=== PATIENT | female | born 1960 | race Caucasian/White ===

== ENCOUNTER → 2017-02-15 | Outpatient (CLI) | payer MEDICARE, MEDICAID ==
--- NOTE | 2017-02-15 08:16 | Diagnostic Imaging Report ---
Left breast ultrasound. INDICATION: Lumps in the periareolar and lesser aspect of the left breast. CAD is utilized. The current study was also evaluated with a Computer Aided Detection (CAD) system. FINDINGS: There is a heterogeneously dense parenchyma which may decrease mammographic sensitivity. The areas of palpable lump demonstrates no definite abnormality. A mild asymmetry along the lateral aspect of the left breast near the palpable area appears to change in shape on the exaggerated lateral view from the cc projection and on the lateral view in favor of summation artifact of parenchyma. IMPRESSION: No suspicious underlying mass evident on mammography. Ultrasound evaluation is pending. BI-RADS 0. ACR BI-RADS Category 0: Incomplete. (Needs additional imaging evaluation). Result letter will be mailed to the patient. Note: At least 10% of breast cancer is not imaged by mammography. Dictated by: Dictated on workstation # [id number]
--- NOTE | 2017-02-15 18:24 | Diagnostic Imaging Report ---
Left breast ultrasound. INDICATION: Left breast lumps. FINDINGS: At the 1:30 o'clock position lump area and at the 7:30 zone in the left breast, areas of palpable lumps are evaluated with no underlying abnormality seen. IMPRESSION: Negative study. Clinical follow-up of the palpable area is recommended. ACR BI-RADS Category 1: Negative. Dictated by: Dictated on workstation # [id number]
== END ==
LOC: RAD 07:40
PROVIDERS: ATTEND Nurse Practitioner Family
DX: N63 Unspecified lump in breast (principal)
CPT/HCPCS: 76642

== ENCOUNTER → 2017-08-02 | Outpatient (CLI) | payer MEDICARE, MEDICAID ==
[~2017-08-02] MED LIST: REGADENOSON 0.4 MG/5 ML SYR (LEXISCAN) IV ONE
[2017-08-02] MEDS: CATHETER FLUSH 10 ML SYR IV PRN ×2 (11:36→13:11)
[2017-08-02 13:08] VITALS: BP 137/66
--- NOTE | 2017-08-03 09:24 | STRESS TEST ---
DATE OF SERVICE: 08/02/2017 LEXISCAN MYOVIEW STRESS TEST REPORT REFERRING PHYSICIAN: Dr. Daniel Valencia. Baseline heart rate is 75. Baseline blood pressure 143/69 baseline EKG is sinus rhythm with no ischemic changes. In summary, the patient was injected with 10.93 mCi of technetium-99 Myoview and the resting images were obtained. Then, the patient received 0.4 mg of Lexiscan followed by 31.1 mCi of technetium-99 Myoview. Throughout the test, there were no EKG changes. The resting and stress images were reviewed and compared in the short axis, horizontal long axis, and vertical long axis views. Review of the images showed breast attenuation with mild decreased uptake involving the whole anterior wall with reversibility. There is total infarction of the inferior wall and inferoapical segment, inferolateral wall. SSS is 21. SDS zero. TID value 1.01. On the gated images, the left ventricle appeared to be dilated with diffuse left ventricular hypokinesia, calculated ejection fraction 33%. CONCLUSION: 1. The patient tolerated Lexiscan well. 2. 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 3. Dilated left ventricle with diffuse left ventricular hypokinesia, calculated ejection fraction 33%. Job ID: [id number] DocumentID: [id number] Dictated Date: 08/02/2017 15:34:25 Reliner Date: 08/03/2017 08:01:47 Dictated By: ISAIAH MARK MD
== END ==
LOC: CARD 11:07
PROVIDERS: ATTEND Internal Medicine Cardiovascular Disease
DX: E78.5 Hyperlipidemia, unspecified; E07.9 Disorder of thyroid, unspecified; I25.10 Atherosclerotic heart disease of native coronary artery without angina pectoris; I10 Essential (primary) hypertension
CPT/HCPCS: 78452; 93017; 93306

== ENCOUNTER 2017-09-19 13:17 | Outpatient (CLI) | payer MEDICARE, MEDICAID ==
[~2017-09-19] VITALS: Ht 160 cm; Wt 52.2 kg
[~2017-09-19 13:17] MED LIST changes: +ALPR0.254 PO; +ASCO500T7 PO; +ASPI-808 PO; +ASPI-983 PO; +ATOR40TA70 PO; +BLAC80CA PO; +CARV6.252 PO; +CHOL400D8 PO; +CHRO1TAB8 PO; +CLOP75TA28 PO; +CYCL10TA9 PO; +ESCI10TA55 PO; +ESTR10TA9 VG; +GABA300S2 PO; +HYDR-3820 PO; +LANS30CA PO; +LISI10TA2 PO; +MAGN400T6 PO; +MULT-436 PO; +NAPR-1067 PO; +NITR0.4T SL; +OMEG1CAP58 PO; +OXYC20TA3 PO; -REGADENOSON 0.4 MG/5 ML SYR (LEXISCAN) IV ONE; +TRAM50TA2 PO; +TRAZ150T72 PO; +UBIQ100C3 PO; +VITA1CAP PO
[2017-09-19] MEDS ORDERED: CHOL200059 PO (13:32)
[2017-09-19] MEDS ORDERED: ESTR1TAB24 PO (13:32)
[2017-09-19] MEDS ORDERED: ASPI-586 PO (13:32)
[2017-09-19] MEDS ORDERED: GABA-488 PO (13:32)
[2017-09-19 13:39] VITALS: BP 123/71
== END 2017-09-19 13:40 | disposition home or self-care (01) ==
LOC: PREOP 13:17
PROVIDERS: ATTEND Orthopaedic Surgery
DX: Z01.818 Encounter for other preprocedural examination (principal); M75.101 Unspecified rotator cuff tear or rupture of right shoulder, not specified as traumatic
CPT/HCPCS: 87081

== ENCOUNTER 2017-09-27 08:20 | Day surgery (SDC) | payer MEDICARE, MEDICAID ==
--- NOTE | 2017-09-18 12:40 | HISTORY AND PHYSICAL ---
DATE OF SERVICE: DATE OF ADMISSION: 09/27/2017 ADMISSION HISTORY AND PHYSICAL SOCIAL SECURITY LAST-FOUR: 3920. REASON FOR ADMISSION: This will be for outpatient surgery on 09/27/2017 for right shoulder arthroscopy with rotator cuff repair. HISTORY OF PRESENT ILLNESS: The patient is a 56-year-old female with a 3 month history of right shoulder pain. She reports it began when she was struck on her shoulder with a piece of lumber. She reports pain with overhead activities and with reaching to her side. She reports no improvement with rest and activity modifications. She underwent an MRI, which reveals a full thickness supraspinatus tear. Due to functional impairment and failure to improve with conservative measures, the patient elected to proceed with surgical intervention. REVIEW OF SYSTEMS: No chest pain, no shortness of breath. No dysuria. PAST MEDICAL HISTORY: Hypertension, costochondritis, vertigo, chronic pain, history of myocardial infarction, history of herniorrhaphy, anxiety disorder, coronary artery disease, and Guillain-[place] syndrome. PAST SURGICAL HISTORY: Hysterectomy, tonsillectomy, coronary artery stent placement, breast augmentation as well as reduction and cervical C5 through C7 fusion. FAMILY HISTORY: Significant for cancer, stroke, ischemic heart disease. PRIMARY CARE PROVIDER: Daniel Valencia MD MEDICATIONS: Fish oil, Nitrostat, trazodone, Tylenol, escitalopram, aspirin, vitamin D, Plavix, carvedilol, estradiol, lisinopril, lansoprazole, Lipitor, gabapentin, alprazolam, tramadol, cyclobenzaprine, and OxyContin. ALLERGIES: No known drug allergies. SOCIAL HISTORY: The patient smokes a pack and half of cigarettes a day. Denies alcohol use. PHYSICAL EXAMINATION: GENERAL: The patient is well-developed, well-nourished in no acute distress. HEENT: Normocephalic, atraumatic. Pupils are equal, round and reactive. Oropharynx is clear. NECK: Supple, with no lymphadenopathy. LUNGS: Clear to auscultation bilaterally. HEART: Regular rate and rhythm. ABDOMEN: Soft, nontender, nondistended. EXTREMITIES: The patient is nontender at her acromioclavicular joint. There is no pain with cross body adduction. She has a positive Neer's and positive Malhotra sign. Weakness with abduction and external rotation with pain elicited. She has negative Spurling's maneuver. Active forward elevation of 170 degrees, external rotation is , internal rotation 70 degrees. IMPRESSION: Right rotator cuff tear PLAN: Right shoulder arthroscopy with rotator cuff repair. The risks, benefits, options, ramifications and recovery have been discussed at length with the patient. She understands and wishes to proceed. Job ID: [id number] DocumentID: [id number] Dictated Date: 09/18/2017 11:32:45 Pillowcase Cleaner Date: 09/18/2017 12:40:14 Dictated By: DACIA CERVANTES MD
[~2017-09-27] VITALS: Ht 160 cm; Wt 52.2 kg
[~2017-09-27 08:20] MED LIST changes: +ASPI-586 PO; +CHOL200059 PO; +ESTR1TAB24 PO; +GABA-488 PO
[2017-09-27 08:41] VITALS: BP 113/65
[2017-09-27] MEDS ORDERED: ceFAZolin 1 GM/NS 50 ML IVPB IV ONE ×2 (08:45)
[2017-09-27] MEDS ORDERED: BUPIVACAINE 0.25% 30 ML (SENSORCAINE) VIAL ONE (08:47)
[2017-09-27] MEDS ORDERED: MIDAZOLAM 2 MG/2 ML (VERSED) VIAL ONE (08:52)
[2017-09-27] MEDS ORDERED: fentaNYL INJECTION 100 MCG/2 ML AMP ONE (09:09)
[2017-09-27] MEDS ORDERED: SEVOFLURANE (ULTANE) 15 ML INHAL SOLN ONE ×5 (09:10→10:12)
[2017-09-27] MEDS ORDERED: proPOfol 200 MG/20 ML (DIPRIVAN) VIAL IV ONE (09:10)
[2017-09-27] MEDS ORDERED: ROCURONIUM 50 MG/5 ML (ZEMURON) VIAL IV ONE (09:10)
[2017-09-27] MEDS ORDERED: LIDOCAINE PF 2% 5 ML (XYLOCAINE) VIAL ONE (09:10)
[2017-09-27] MEDS ORDERED: ONDANSETRON 4 MG/2 ML (SDV) Z0FRAN ONE (09:10)
[2017-09-27] MEDS ORDERED: DEXAMETHASONE 10 MG/ML (DECADRON) 1 ML VIAL ONE (09:10)
--- NOTE | 2017-09-27 09:22 | Progress Note-Pre Operative ---
Pre-Operative Progress Note H&P Reviewed The H&P was reviewed, patient examined and no changes noted. Date Seen by Provider: Sep 27, 2017 Time Seen by Provider: 09:21 Date H&P Reviewed: Sep 27, 2017 Time H&P Reviewed: 09:22 Pre-Operative Diagnosis: right rotator cuff tear DACIA CERVANTES MD Sep 27, 2017 09:22
--- NOTE | 2017-09-27 09:24 | Progress Note-Post Operative ---
Post-Operative Progess Note Surgeon (s)/Ceramic Saw Tender (s) Surgeon DACIA CERVANTES MD Ceramic Saw Tender: lynnette thorne Pre-Operative Diagnosis right rotator cuff tear Post-Operative Diagnosis right rotator cuff and SLAP tears Procedure & Operative Findings Date of Procedure 09/27/17 Procedure Performed/Findings right shoulder arthroscopic acromioplasty, biceps tenotomy and open rotator cuff repair Anesthesia Type GETA plus inter scalene Estimated Blood Loss Estimated blood loss (mL): minimal Specimens/Packing Specimens Removed none Packing: none DACIA CERVANTES MD Sep 27, 2017 09:24
[2017-09-27] MEDS ORDERED: LACTATED RINGERS 1,000 ML IV PRN (09:26)
[2017-09-27] MEDS ORDERED: oxyCODONE/APAP 5/325MG (PERCOCET 5) TABLET PO PRN (09:30)
[2017-09-27] MEDS ORDERED: NEOSTIGMINE (BLOXIVERZ ) 1 MG/1ML 10 ML VIAL ONE (10:12)
[2017-09-27] MEDS ORDERED: GLYCOPYRROLATE 0.2 MG/ML (ROBINUL) 2 ML VIAL ONE (10:12)
[2017-09-27] MEDS ORDERED: morphine INJ 10 MG/ML 1ML (SYR OR VIAL) IVP PRN (10:45)
[2017-09-27] MEDS ORDERED: ONDANSETRON 4 MG/2 ML (SDV) Z0FRAN IVP PRN (10:45)
[2017-09-27 11:23] VITALS: BP 154/81
[2017-09-27 11:50] VITALS: BP 155/87
--- NOTE | 2017-09-27 13:46 | OPERATIVE REPORT ---
DATE OF SERVICE: 09/27/2017 PREOPERATIVE DIAGNOSIS: Right shoulder rotator cuff tear. POSTOPERATIVE DIAGNOSES: 1. Right shoulder rotator cuff tear. 2. Right shoulder SLAP tear. PROCEDURES: 1. Right shoulder arthroscopic biceps tenotomy. 2. Right shoulder arthroscopic acromioplasty. 3. Right shoulder open rotator cuff repair. SURGEON: Taran Cervantes M.D. PRINT BINDING AND FINISHING WORKER: DYAN Wilde, who assisted throughout the procedure and closed the incisions. ANESTHESIA: General endotracheal plus interscalene nerve block as per my request for postoperative pain management. ESTIMATED BLOOD LOSS: Minimal. DRAINS: None. COMPLICATIONS: None. POSTOPERATIVE PLANS: Passive range of motion and sling wear for 4 weeks. The patient was transferred to the recovery room awake and in stable condition. STATEMENT OF MEDICAL NECESSITY: The patient is a 56-year-old right hand dominant female with complaints of right shoulder pain following an injury where she was struck by a 2 x 12 piece of lumber. She was weak with abduction and external rotation. An MRI revealed a full-thickness supraspinatus tear and due to functional impairment, the patient received surgical intervention. Examination under anesthesia revealed forward elevation of 170 degrees, external rotation 90 degrees, internal rotation to 80 degrees. Arthroscopic findings demonstrated type 2 SLAP tear. There is an anterior supraspinatus tear involving the superior aspect of the subscapularis with retraction to near the glenoid. The glenoid and humeral head demonstrated no gross chondral abnormalities. There is moderate bursitis and subacromial space with sloping of the anterolateral acromion. PROCEDURE: After risks and benefits of procedure were discussed and questions were answered, informed consent was signed and placed on chart. The operative site was confirmed preoperative holding area and initialed by the surgeon. The patient was then transferred to the operating room and after adequate levels of regional plus general endotracheal anesthetic was obtained a timeout was called confirming the operative site. Examination under anesthesia was performed with the findings noted. The right shoulder and upper extremity were prepped and draped in the usual sterile fashion. The shoulder joint was injected with 20 mL of fluid as well as subacromial space. Standard posterior portal was placed under direct visualization, an anterior portal was created in the interval between the biceps, subscapularis and glenoid. The biceps anchor was released and the stump was debrided with the shaver. The scope was redirected into the subacromial space and a lateral portal was created and bursectomy was performed and the acromion was planed to a flat type-1 acromion. The shoulder joint was copiously irrigated. The lateral portal was then extended. The deltoid was split in line with its fibers leaving it attached to the acromion. The rotator cuff was scarred, but could be mobilized superiorly on both anterior and posterior leaflets and 2 anchors were placed in a modified Zev -- Chris repair was performed leaving approximately 1 x 2 cm gap superiorly. The wound was copiously irrigated. The deltoid was repaired in a [id number] fashion using #2 Tevdek in irnsmd-yr-jthns interrupted fashion. The wound was further irrigated. A 2-0 Vicryl was used to reapproximate subcutaneous tissue and skin was closed with 4-0 nylon in a running alternating horizontal mattress fashion. The portal sites were closed with 4-0 nylon in simple interrupted fashion. The incision was infiltrated with plain Marcaine. A soft dressing and sling were applied and the patient was transferred to the recovery room awake and stable condition. Job ID: [id number] DocumentID: [id number] Dictated Date: 09/27/2017 10:21:00 Gi Asst Date: 09/27/2017 13:45:29 Dictated By: TARAN CERVANTES MD
== END 2017-09-27 12:27 ==
LOC: SDC 08:20
PROVIDERS: ATTEND Orthopaedic Surgery
DX: S46.011A Strain of muscle(s) and tendon(s) of the rotator cuff of right shoulder, initial encounter (principal); S43.431A Superior glenoid labrum lesion of right shoulder, initial encounter; W22.8XXA Striking against or struck by other objects, initial encounter; I10 Essential (primary) hypertension; I25.2 Old myocardial infarction; F41.9 Anxiety disorder, unspecified; I25.10 Atherosclerotic heart disease of native coronary artery without angina pectoris; E78.5 Hyperlipidemia, unspecified; G61.0 Guillain-Barre syndrome; F32.9 Major depressive disorder, single episode, unspecified; M79.7 Fibromyalgia; Z98.1 Arthrodesis status; Z95.5 Presence of coronary angioplasty implant and graft; Z79.899 Other long term (current) drug therapy; Z79.82 Long term (current) use of aspirin; F17.210 Nicotine dependence, cigarettes, uncomplicated

== ENCOUNTER 2018-01-25 08:35 | Outpatient (CLI) | payer MEDICARE, MEDICAID ==
[~2018-01-25] VITALS: Ht 160 cm; Wt 52.2 kg
== END 2018-01-25 09:43 ==
LOC: PREOP 08:35
PROVIDERS: ATTEND Orthopaedic Surgery
DX: Z01.818 Encounter for other preprocedural examination (principal); R22.31 Localized swelling, mass and lump, right upper limb

== ENCOUNTER 2018-01-31 08:13 | Day surgery (SDC) | payer MEDICARE, MEDICAID ==
--- NOTE | 2018-01-22 12:58 | HISTORY AND PHYSICAL ---
DATE OF SERVICE: DATE OF ADMISSION: . REASON FOR ADMISSION: This will be for an outpatient surgery on 01/31/2018. This is a pre-admission history and physical surgery for right hand palmar mass excision. HISTORY OF PRESENT ILLNESS: The patient is a 57-year-old right hand dominant female with complaints of a mass on the palmar aspect of her right hand. She reports that this is painful. She denies loss of motion in her finger, but reports that it hurts to rewrite editor. She denies other areas of her palms or feet with similar problems. She denies family history issues. Due to interference with activities of daily living, the patient elected to proceed with surgical intervention. REVIEW OF SYSTEMS: No chest pain or shortness of breath. No dysuria. PAST MEDICAL HISTORY: Hypertension, costochondritis, vertigo, chronic pain, myocardial infarction, herniorrhaphy, anxiety disorder, coronary artery disease, Guillain-[place] syndrome. PAST SURGICAL HISTORY: Hysterectomy, tonsillectomy, coronary artery stent placement, breast augmentation as well as reduction, cervical C5 through C7 fusion and rotator cuff repair. FAMILY HISTORY: Significant for cancer, stroke, ischemic heart disease. PRIMARY CARE PROVIDER: Dr. Daniel paige. MEDICATIONS: Fish oil, Nitrostat, trazodone, Tylenol, escitalopram, aspirin, vitamin D, Plavix, carvedilol, estradiol, lisinopril, lansoprazole, Lipitor, gabapentin, alprazolam, tramadol, cyclobenzaprine, OxyContin. SOCIAL HISTORY: The patient smokes a pack and half of cigarettes a day. Denies alcohol use. PHYSICAL EXAMINATION: GENERAL: The patient is well developed, well-nourished in no acute distress. HEENT: Normocephalic, atraumatic. Pupils are equal, round, reactive. Oropharynx is clear. NECK: Supple, no lymphadenopathy. LUNGS: Clear to auscultation bilaterally. HEART: Regular rate and rhythm. ABDOMEN: Soft, nontender, nondistended. EXTREMITIES: The right palm demonstrates thickening in her mid palm at the distal flexion crease. She has full MCP, DIP and PIP flexion and extension throughout her fingers. There is tenderness over the mass. This does appear to move independently of her flexor tendons. IMPRESSION: Right hand palmar fibromatosis. PLAN: Right hand palmar fibromatosis excision. The risks, benefits, options, ramifications and recovery were discussed at length with the patient. She understands and wishes to proceed. Job ID: [id number] DocumentID: [id number] Dictated Date: 01/22/2018 11:41:50 Dredge Runner Date: 01/22/2018 12:57:47 Dictated By: DACIA CERVANTES MD
[~2018-01-31] VITALS: Ht 160 cm; Wt 52.2 kg
--- OUTSIDE RECORDS SUMMARY | 2018-01-31 08:18 | XMS REPORT | Clinical Summary ---
Author Author [facility] Organization [facility] Address Unknown Phone Unavailable Care Team Providers Care Telecommunications Project Manager Name Role Phone PCP Unavailable Source Comments Some departments are not documenting in the electronic medical record. If you do not see the information that you expected, contact Release of Information in the Health Information Management department at [phone] for further assistance in locating additional records.[facility] Allergies No Known Allergies Current Medications Prescription Sig. Disp. Refills Start End Date Status Date traMADol (ULTRAM) 50 mg Take 50 mg by mouth four Active tablet times daily. traZODone (DESYREL) 150 Take 150 mg by mouth at Active mg tablet bedtime as needed. gabapentin (NEURONTIN) Take 300 mg by mouth Active 300 mg capsule three times daily. carvedilol (COREG) 6.25 Take 6.25 mg by mouth Active mg tablet daily. Take with food. atorvastatin (LIPITOR) 40 Take 40 mg by mouth at Active mg tablet bedtime daily. clopiDOGrel (PLAVIX) 75 Take 75 mg by mouth Active mg tablet daily. lisinopril (PRINIVIL; Take 10 mg by mouth Active ZESTRIL) 10 mg tablet daily. aspirin 325 mg tablet Take 325 mg by mouth at Active bedtime daily. Take with food. escitalopram oxalate Take 10 mg by mouth Active (LEXAPRO) 10 mg tablet daily. oxyCODONE SR (OXYCONTIN) Take 20 mg by mouth three Active 20 mg tablet times daily HYDROCODONE-ACETAMINOPHEN Take 500 mg by mouth. Active PO estradiol (ESTRACE) 1 mg Take 1 mg by mouth. takes Active tablet 4 times weekly nitroglycerin (NITROSTAT) Place 0.4 mg under tongue Active 0.4 mg tablet every 5 minutes as needed for Chest Pain. Max of 3 tablets, call 911. vitamins, B complex tab Take 1 Tab by mouth Active daily. GREEN TEA LEAF EXTRACT Take 150 mg by mouth. Active (GREEN TEA PO) Green Tea plus Hoodia ascorbic acid (VITAMIN C) Take 500 mg by mouth Active 500 mg tablet daily. magnesium 400 mEq. Magnesium with Active Chelated Zinc Cholecalciferol (Vitamin Take by mouth. Active D3) (VITAMIN D-3) 2,000 unit cap coQ10 (ubiquinol) 100 mg Take by mouth. Active cap BLACK COHOSH PO Take by mouth. Active fish oil- omega 3-DHA/EPA Take 1 Cap by mouth Active 300/1,000 mg capsule daily. BIOTIN PO Take 500 mcg by mouth Active daily. lansoprazole DR(+) Take 30 mg by mouth daily Active (PREVACID) 30 mg capsule 30 minutes before breakfast. cyclobenzaprine Take 10 mg by mouth three Active (FLEXERIL) 10 mg tablet times daily as needed for Muscle Cramps. Active Problems No known active problems Family History Medical History Relation Name Comments Hypertension Brother Migraines Brother Hypertension Father Hypertension Maternal Grandfather Dementia Maternal Grandmother Hypertension Maternal Grandmother Cancer Mother Hypertension Mother Migraines Mother Stroke Mother Hypertension Paternal Grandfather Hypertension Paternal Grandmother Relation Name Status Comments Brother Alive Brother Alive Brother Father Alive Maternal Grandfather Maternal Grandmother Mother Alive Paternal Grandfather Paternal Grandmother Social History Tobacco Use Types Packs/Day Years Used Date Current Every Day Smoker Cigarettes 1.5 36 Smokeless Tobacco: Former User Tobacco Cessation: Ready to Quit: Yes; Counseling Given: Yes Alcohol Use Drinks/Week oz/Week Comments No Quit drinking alcohol 10/24/2004 Sex Assigned at Date Recorded Not on file Last Filed Vital Signs Vital Sign Reading Time Taken Blood Pressure 134/67 11/17/2016 10:00 AM PENOLOGY TEACHER Pulse 71 11/17/2016 10:00 AM PENOLOGY TEACHER Temperature - - Respiratory Rate - - Oxygen Saturation - - Inhaled Oxygen - - Concentration Weight 53 kg (116 lb 12.8 oz) 11/17/2016 10:00 AM PENOLOGY TEACHER Height 160 cm (5' 3") 11/17/2016 10:00 AM PENOLOGY TEACHER Body Mass Index 20.69 11/17/2016 10:00 AM PENOLOGY TEACHER Plan of Treatment Health Maintenance Due Date Last Done Comments HEPATITIS C SCREENING 1962 PHYSICAL (COMPREHENSIVE) 1969 EXAM PERTUSSIS VACCINE 1973 HIV SCREENING 1977 TETANUS VACCINE 1979 CERVICAL CANCER SCREENING 1992 BREAST CANCER SCREENING 2002 COLORECTAL CANCER 2012 SCREENING INFLUENZA VACCINE 07/30/2018 Results Not on filefrom Last 3 Months
--- OUTSIDE RECORDS SUMMARY | 2018-01-31 08:18 | XMS REPORT | Encounter Summary ---
Author Author [facility] Address Unknown Phone Unavailable Care Team Providers Care Balance Sheet Analyst Name Role Phone Daniel Valencia MD PCP Encounter Details Date Type Department Care Team Description 01/30/2018 [facility]LE TESTS Link, [facility] [place], [place] Social History Tobacco Use Types Packs/Day Years Used Date Current Every Day Smoker Smokeless Tobacco: Never Used Comments: Smoking History Packs/day: Unknown/Cigarettes/1 1/2pack Sex Assigned at Date Recorded Not on file as of this encounter Plan of Treatment Date Type Specialty Care Team Description 02/22/2018 Follow-Up Infectious Diseases Kody Cash MD [address] [place] [address] as of this encounter Visit Diagnoses Not on filein this encounter
--- OUTSIDE RECORDS SUMMARY | 2018-01-31 08:18 | XMS REPORT | Clinical Summary ---
Author Author [facility] Address Unknown Phone Unavailable Care Team Providers Care Solid Tire Tuber Machine Operator Name Role Phone Daniel Valencia MD PP Allergies No Known Allergies Current Medications Prescription Sig. Disp. Refills Start End Date Status Date carvedilol (COREG) 6.25 take 1 Tablet by Oral 0 0 09/26/20 Active MG tablet route every day 11 gabapentin (NEURONTIN) take 1 tablet (600MG) by 0 09/26/20 Active 600 MG tablet oral route 3 times every 11 day [place]-3 Fatty Acids (FISH take 1 Capsule by Oral 0 0 09/26/20 Active OIL) 1000 MG CAPS route 3 times every day 11 traMADol (ULTRAM) 50 MG One orally four times 0 0 04/19/20 Active tablet daily 13 clopidogrel (PLAVIX) 75 One orally daily 0 0 04/19/20 Active MG tablet 13 aspirin 325 MG tablet One orally daily 0 0 04/19/20 Active 13 Green Tea 315 MG CAPS Take by mouth See Admin 0 03/07/20 Active Instructions. 11 atorvastatin (LIPITOR) 40 take 1 tablet (40MG) by 0 03/07/20 Active MG tablet oral route every day 11 estradiol (ESTRACE) 1 MG take 1 tablet (1MG) by 0 03/07/20 Active tablet oral route every day 11 b complex vitamins take 1 Capsule by oral 0 03/07/20 Active capsule route every day 11 lisinopril One orally daily 0 0 04/19/20 Active (PRINIVIL,ZESTRIL) 5 MG 13 tablet Cholecalciferol (VITAMIN One orally daily 0 0 04/19/20 Active D3) 400 UNITS CAPS 13 Magnesium (M2 MAGNESIUM) take 1 Capsule by Oral 0 04/19/20 Active 100 MG CAPS route every day 13 nitroglycerin (NITROSTAT) place 1 tablet (0.4MG) 0 04/19/20 Active 0.4 MG SL tablet by sublingual route at 13 the 1st sign of attack; may repeat every 5 min until relief; if pain persists after 3 tablets in 15 min, prompt medical attention is recommended vitamin C (ASCORBIC ACID) take 1 Tablet by Oral 0 06/20/20 Active 500 MG tablet route every day 11 diphenhydramine-acetamino One orally at bedtime 0 0 04/19/20 Active phen (ACETAMINOPHEN PM EX 13 ST) 25-500 MG TABS Coenzyme Q10 (CO Q-10) One orally daily 0 0 04/19/20 Active 100 MG CAPS 13 Black Cohosh Extract 80 Take by mouth See Admin 0 03/07/20 Active MG CAPS Instructions. 11 ALPRAZolam (XANAX) 0.25 Take by mouth 3 (three) 03/07/20 Active MG tablet times daily as needed. 11 cyclobenzaprine Take 10 mg by mouth 3 04/19/20 Active (FLEXERIL) 10 MG tablet (three) times daily. 13 oxycodone (OXYCONTIN) 20 Take 20 mg by mouth every Active MG 12 hr tablet 12 (twelve) hours. lansoprazole (PREVACID) Take 30 mg by mouth every Active 30 MG capsule morning before breakfast. naproxen sodium (ANAPROX) Take 500 mg by mouth as 03/07/20 Active 550 MG tablet needed. 11 hydrocodone-acetaminophen Take 1 tablet by mouth Active (NORCO) 10-325 MG every 3 (three) hours. BIOTIN PO Take 500 mcg by mouth Active daily. amitriptyline (ELAVIL) 10 Take 10 mg by mouth at Active MG tablet bedtime. Reported on 09/01/2016 gabapentin (NEURONTIN) Reported on 09/01/2016 5 05/04/20 Active 300 MG capsule 16 lisinopril TK 1 T PO QD 2 04/16/20 Active (PRINIVIL,ZESTRIL) 10 MG 16 tablet naproxen (NAPROSYN) 500 1 05/04/20 Active MG tablet 16 WAL-PHED 30 MG tablet Reported on 09/01/2016 1 07/19/20 Active 16 terbinafine (LAMISIL) 250 Reported on 09/01/2016 0 07/15/20 Active MG tablet 16 escitalopram (LEXAPRO) 10 Take 1 tablet (10 mg 30 tablet 2 12/16/19 Active MG tabletIndications: total) by mouth daily. 17 Other depression traZODone (DESYREL) 150 TAKE 1 TABLET BY MOUTH 30 tablet 1 02/07/20 Active MG tabletIndications: EVERY EVENING 17 Chronic fatigue syndrome, Fibromyalgia Active Problems Problem Noted Date Polyneuropathy (HCC) 06/21/2016 Fibromyalgia 05/12/2016 CFS (chronic fatigue syndrome) 11/04/2013 Encounters Date Type Specialty Care Team Description 01/30/2018 [facility], [facility] from Last 3 Months Immunizations Name Dates Previously Given Next Due 21-influenza Iiv3 Pfree 08/05/2013 DTaP 04/10/2013 Hepatitis A, Ped/adol, 2 04/10/2013 dose INFLUENZA IIV4 PF 10/05/2015 (FLULAVAL,FLUZONE,FLUARIX ,AFLURIA QUAD) Influenza IIV3 PFree 07/18/2012 Influenza IIV4 MDV 08/18/2014 (Multi-dose vial) Pneumococcal Conjugate 10/05/2015 (13-valent) TYPHOID VACCINE,NOS 04/10/2013 ([facility] registry) Social History Tobacco Use Types Packs/Day Years Used Date Current Every Day Smoker Smokeless Tobacco: Never Used Tobacco Cessation: Ready to Quit: No; Counseling Given: No Comments: Smoking History Packs/day: Unknown/Cigarettes/1 1/2pack Sex Assigned at Date Recorded Not on file Last Filed Vital Signs Vital Sign Reading Time Taken Blood Pressure 122/78 08/24/2017 3:36 PM CDT Pulse 68 08/24/2017 3:36 PM CDT Temperature 36.6 C (97.8 F) 08/24/2017 3:36 PM CDT Respiratory Rate 22 08/24/2017 3:36 PM CDT Oxygen Saturation - - Inhaled Oxygen - - Concentration Weight 53.1 kg (117 lb) 08/24/2017 3:36 PM CDT Height 160 cm (5' 3") 03/30/2016 2:47 PM CDT Body Mass Index 20.73 08/24/2017 3:36 PM CDT Plan of Treatment Date Type Specialty Care Team Description 02/22/2018 Follow-Up Kody Cash MD [address] [place] [id number] Health Maintenance Due Date Last Done Comments Hepatitis C Screening 1962 CERVICAL CANCER SCREENING 1983 Breast Cancer 2012 Screening-Mammogram Colon Cancer Screening 2012 Influenza Vaccine (Season 06/30/2018 10/05/2015, 08/18/2014, 07/18/2012 Ended) DTaP,Tdap,and Td Vaccines 04/10/2023 04/10/2013 (2 - Tdap) Results Not on filefrom Last 3 Months
--- OUTSIDE RECORDS SUMMARY | 2018-01-31 08:19 | XMS REPORT | Continuity of Care Document ---
Author Author [facility] Address Unknown Phone Unavailable Allergies There is no data. Medications Medication Packaging Start Date Stop Date Route Dosage Sig diclofenac sodium 1% (VOLTAREN) 1 % gel -- Apply externally to affected area two times a day Apply 2-4 grams to affected area 2 times a day as needed Tube 08/24/2017 Topical 2 TIMES A DAY 2 TIMES A DAY Problems Date Dx Coded Attending Type Code Diagnosis Diagnosed By 06/26/2013 YONY AUGUSTIN DDS 112.3 CANDIDIASIS OF SKIN AND NAILS 06/26/2013 YONY AUGUSTIN DDS 724.5 BACKACHE UNSPECIFIED 06/26/2013 ANTOLIN NOE NANDO K 112.3 CANDIDIASIS OF SKIN AND NAILS 06/26/2013 ANTOLIN ONE NANDO K 724.5 BACKACHE UNSPECIFIED 06/26/2013 DANGELO DO NANDO K 112.3 CANDIDIASIS OF SKIN AND NAILS 06/26/2013 ANTOLIN NOE NANDO K 724.5 BACKACHE UNSPECIFIED 06/26/2013 ANTOLIN NOE NANDO K 112.3 CANDIDIASIS OF SKIN AND NAILS 06/26/2013 ANTOLIN NOE NANDO K 724.5 BACKACHE UNSPECIFIED 06/26/2013 FILIPE PAULSON MD 112.3 CANDIDIASIS OF SKIN AND NAILS 06/26/2013 FILIPE PAULSON MD 724.5 BACKACHE UNSPECIFIED 06/26/2013 FILIPE PAULSON MD 112.3 CANDIDIASIS OF SKIN AND NAILS 06/26/2013 FILIPE PAULSON MD 724.5 BACKACHE UNSPECIFIED 06/26/2013 FILIPE PAULSON MD 112.3 CANDIDIASIS OF SKIN AND NAILS 06/26/2013 FILIPE PAULSON MD 724.5 BACKACHE UNSPECIFIED 06/26/2013 FILIPE PAULSON MD 112.3 CANDIDIASIS OF THE SKIN 06/26/2013 FILIPE PAULSON MD 724.5 BACKACHE UNSPECIFIED 06/26/2013 FILIPE PAULSON MD 112.3 CANDIDIASIS OF THE SKIN 06/26/2013 FILIPE PAULSON MD 724.5 BACKACHE UNSPECIFIED 06/26/2013 FILIPE PAULSON MD 112.3 CANDIDIASIS OF THE SKIN 06/26/2013 FILIPE PAULSON MD 724.5 BACKACHE UNSPECIFIED 06/26/2013 FILIPE PAULSON MD 112.3 CANDIDIASIS OF THE SKIN 06/26/2013 FILIPE PAULSON MD 724.5 BACKACHE UNSPECIFIED 06/26/2013 FILIPE PAULSON MD 112.3 CANDIDIASIS OF THE SKIN 06/26/2013 FILIPE PAULSON MD 724.5 BACKACHE UNSPECIFIED 06/26/2013 FILIPE PAULSON MD 112.3 CANDIDIASIS OF THE SKIN 06/26/2013 FILIPE PAULSON MD 724.5 BACKACHE UNSPECIFIED 06/26/2013 FILIPE PAULSON MD 112.3 CANDIDIASIS OF THE SKIN 06/26/2013 FILIPE PAULSON MD 724.5 BACKACHE UNSPECIFIED 06/26/2013 FILIPE PAULSON MD 112.3 CANDIDIASIS OF THE SKIN 06/26/2013 FILIPE PAULSON MD 724.5 BACKACHE UNSPECIFIED 06/26/2013 FILIPE PAULSON MD 112.3 CANDIDIASIS OF THE SKIN 06/26/2013 FILIPE PAULSON MD 724.5 BACKACHE UNSPECIFIED 06/26/2013 FILIPE PAULSON MD 112.3 CANDIDIASIS OF THE SKIN 06/26/2013 FILIPE PAULSON MD 724.5 BACKACHE UNSPECIFIED 06/26/2013 FILIPE PAULSON MD 112.3 CANDIDIASIS OF THE SKIN 06/26/2013 FILIPE PAULSON MD 724.5 BACKACHE UNSPECIFIED 06/26/2013 FILIPE PAULSON MD 112.3 CANDIDIASIS OF THE SKIN 06/26/2013 FILIPE PAULSON MD 724.5 BACKACHE UNSPECIFIED 06/26/2013 FILIPE PAULSON MD 112.3 CANDIDIASIS OF THE SKIN 06/26/2013 FILIPE PAULSON MD 724.5 BACKACHE UNSPECIFIED 06/26/2013 LUCAS JULIO MD 112.3 CANDIDIASIS OF THE SKIN 06/26/2013 LUCAS JULIO MD 724.5 BACKACHE UNSPECIFIED 06/26/2013 FILIPE PAULSON MD 112.3 CANDIDIASIS OF THE SKIN 06/26/2013 FILIPE PAULSON MD 724.5 BACKACHE UNSPECIFIED 06/26/2013 FILIPE PAULSON MD 112.3 CANDIDIASIS OF THE SKIN 06/26/2013 FILIPE PAULSON MD 724.5 BACKACHE UNSPECIFIED 06/26/2013 TAMEZVALERIE MEHTA DDS 112.3 CANDIDIASIS OF THE SKIN 06/26/2013 VALERIE TAMEZ DDS 724.5 BACKACHE UNSPECIFIED 08/12/2013 DANGELO DO, NANDO K 338.29 CHRONIC PAIN 08/12/2013 DANGELO DO, NANDO K 729.1 FIBROMYALGIA 08/12/2013 DANGELO DO, NANDO K 338.29 CHRONIC PAIN 08/12/2013 DANGELO DO, NANDO K 729.1 FIBROMYALGIA 08/12/2013 DANGELO DO, NANDO K 338.29 CHRONIC PAIN 08/12/2013 DANGELO DO, NANDO K 729.1 FIBROMYALGIA 08/12/2013 FILIPE PAULSON MD 338.29 CHRONIC PAIN 08/12/2013 FILIPE PAULSON MD 729.1 FIBROMYALGIA 08/12/2013 FILIPE PAULSON MD 338.29 CHRONIC PAIN 08/12/2013 FILIPE PAULSON MD 729.1 FIBROMYALGIA 08/12/2013 FILIPE PAULSON MD 338.29 CHRONIC PAIN 08/12/2013 FILIPE PAULSON MD 729.1 FIBROMYALGIA 08/12/2013 FILIPE PAULSON MD 338.29 CHRONIC PAIN 08/12/2013 FILIPE PAULSON MD 729.1 FIBROMYALGIA 08/12/2013 FILIPE PAULSON MD 338.29 CHRONIC PAIN 08/12/2013 FILIPE PAULSON MD 729.1 FIBROMYALGIA 08/12/2013 FILIPE PAULSON MD 338.29 CHRONIC PAIN 08/12/2013 FILIPE PAULSON MD 729.1 FIBROMYALGIA 08/12/2013 FILIPE PAULSON MD 338.29 CHRONIC PAIN 08/12/2013 FILIPE PAULSON MD 729.1 FIBROMYALGIA 08/12/2013 FILIPE PAULSON MD 338.29 CHRONIC PAIN 08/12/2013 FILIPE PAULSON MD 729.1 FIBROMYALGIA 08/12/2013 FILIPE PAULSON MD 338.29 CHRONIC PAIN 08/12/2013 KHURRAM HERNANDEZ, FILIPE Brown 729.1 FIBROMYALGIA 08/12/2013 FILIPE PAULSON MD 338.29 CHRONIC PAIN 08/12/2013 FILIPE PAULSON MD 729.1 FIBROMYALGIA 08/12/2013 FILIPE PAULSON MD 338.29 CHRONIC PAIN 08/12/2013 FILIPE PAULSON MD 729.1 FIBROMYALGIA 08/12/2013 FILIPE PAULSON MD 338.29 CHRONIC PAIN 08/12/2013 FILIPE PAULSON MD 729.1 FIBROMYALGIA 08/12/2013 FILIPE PAULSON MD 338.29 CHRONIC PAIN 08/12/2013 FILIPE PAULSON MD 729.1 FIBROMYALGIA 08/12/2013 FILIPE PAULSON MD 338.29 CHRONIC PAIN 08/12/2013 FILIPE PAULSON MD 729.1 FIBROMYALGIA 08/12/2013 FILIPE PAULSON MD 338.29 CHRONIC PAIN 08/12/2013 FILIPE PAULSON MD 729.1 FIBROMYALGIA 08/12/2013 FILIPE PAULSON MD 338.29 CHRONIC PAIN 08/12/2013 FILIPE PAULSON MD 729.1 FIBROMYALGIA 08/12/2013 LUCAS JULIO MD 338.29 CHRONIC PAIN 08/12/2013 LUCAS JULIO MD 729.1 FIBROMYALGIA 08/12/2013 FILIPE PAULSON MD 338.29 CHRONIC PAIN 08/12/2013 FILIPE PAULSON MD 729.1 FIBROMYALGIA 08/12/2013 FILIPE PAULSON MD 338.29 CHRONIC PAIN 08/12/2013 FILIPE PAULSON MD 729.1 FIBROMYALGIA 08/12/2013 VALERIE TAMEZ DDS 338.29 CHRONIC PAIN 08/12/2013 VALERIE TAMEZ DDS 729.1 FIBROMYALGIA 08/15/2013 DANGELO DO, NANDO K V04.81 FLU SHOT 08/15/2013 DANGELO DO, NANDO K V04.81 FLU SHOT 08/15/2013 FILIPE PAULSON MD V04.81 FLU SHOT 08/15/2013 FILIPE PAULSON MD V04.81 FLU SHOT 08/15/2013 FILIPE PAULSON MD V04.81 FLU SHOT 08/15/2013 FILIPE PAULSON MD V04.81 FLU SHOT 08/15/2013 KHURRAM HERNANDEZ, FILIPE Brown V04.81 FLU SHOT 08/15/2013 KHURRAM HERNANDEZ, FILIPE Brown V04.81 FLU SHOT 08/15/2013 KHURRAM HERNANDEZ, FILIPE D V04.81 FLU SHOT 08/15/2013 KHURRAM HERNANDEZ, FILIPE D V04.81 FLU SHOT 08/15/2013 KHURRAM HERNANDEZ, FILIPE D V04.81 FLU SHOT 08/15/2013 KHURRAM HERNANDEZ, FILIPE D V04.81 FLU SHOT 08/15/2013 KHURRAM HERNANDEZ, FILIPE D V04.81 FLU SHOT 08/15/2013 KHURRAM HERNANDEZ, FILIPE Brown V04.81 FLU SHOT 08/15/2013 KHURRAM HERNANDEZ, FILIPE Brown V04.81 FLU SHOT 08/15/2013 KHURRAM HERNANDEZ, FILIPE D V04.81 FLU SHOT 08/15/2013 KHURRAM HERNANDEZ, FILIPE D V04.81 FLU SHOT 08/15/2013 KHURRAM HERNANDEZ, FILIPE Brown V04.81 FLU SHOT 08/15/2013 LUCAS JULIO MD V04.81 FLU SHOT 08/15/2013 KHURRAM HERNANDEZ, FILIPE Brown V04.81 FLU SHOT 08/15/2013 KHURRAM HERNANDEZ, FILIPE Brown V04.81 FLU SHOT 08/15/2013 DASHAWN DDS, VALERIE Zhao V04.81 FLU SHOT 10/03/2013 KHURRAM HERNANDEZ, FILIPE Brown 733.6 TIETZE'S DISEASE 10/03/2013 KHURRAM HERNANDEZ, FILIPE Brown 789.09 groin (inguinal) pain 10/03/2013 FILIPE PAULSON MD 733.6 TIETZE'S DISEASE 10/03/2013 KHURRAM HERNANDEZ, FILIPE Brown 789.09 groin (inguinal) pain 10/03/2013 KHURRAM HERNANDEZ, FILIPE Brown 733.6 TIETZE'S DISEASE 10/03/2013 KHURRAM HERNANDEZ, FILIPE Brown 789.09 groin (inguinal) pain 10/03/2013 KHURRAM HERNANDEZ, FILIPE Brown 733.6 TIETZE'S DISEASE 10/03/2013 FILIPE PAULSON MD 789.09 groin (inguinal) pain 10/03/2013 FILIPE PAULSON MD 733.6 TIETZE'S DISEASE 10/03/2013 FILIPE PAULSON MD 789.09 groin (inguinal) pain 10/03/2013 FILIPE PAULSON MD 733.6 TIETZE'S DISEASE 10/03/2013 FILIPE PAULSON MD 789.09 groin (inguinal) pain 10/03/2013 FILIPE PAULSON MD 733.6 TIETZE'S DISEASE 10/03/2013 FILIPE PAULSON MD 789.09 groin (inguinal) pain 10/03/2013 FILIPE PAULSON MD 733.6 TIETZE'S DISEASE 10/03/2013 FILIPE PAULSON MD 789.09 groin (inguinal) pain 10/03/2013 FILIPE PAULSON MD 733.6 TIETZE'S DISEASE 10/03/2013 FILIPE PAULSON MD 789.09 groin (inguinal) pain 10/03/2013 FILIPE PAULSON MD 733.6 TIETZE'S DISEASE 10/03/2013 FILIPE PAULSON MD 789.09 groin (inguinal) pain 10/03/2013 FILIPE PAULSON MD 733.6 TIETZE'S DISEASE 10/03/2013 FILIPE PAULSON MD 789.09 groin (inguinal) pain 10/03/2013 FILIPE PAULSON MD 733.6 TIETZE'S DISEASE 10/03/2013 FILIPE PAULSON MD 789.09 groin (inguinal) pain 10/03/2013 FILIPE PAULSON MD 733.6 TIETZE'S DISEASE 10/03/2013 FILIPE PAULSON MD 789.09 groin (inguinal) pain 10/03/2013 FILIPE PAULSON MD 733.6 TIETZE'S DISEASE 10/03/2013 FILIPE PAULSON MD 789.09 groin (inguinal) pain 10/03/2013 LUCAS JULIO MD 733.6 TIETZE'S DISEASE 10/03/2013 LUCAS JULIO MD 789.09 groin (inguinal) pain 10/03/2013 FILIPE PAULSON MD 733.6 TIETZE'S DISEASE 10/03/2013 FILIPE PAULSON MD 789.09 groin (inguinal) pain 10/03/2013 FILIPE PAULSON MD 733.6 TIETZE'S DISEASE 10/03/2013 FILIPE PAULSON MD 789.09 groin (inguinal) pain 10/03/2013 VALERIE TAMEZ DDS 733.6 TIETZE'S DISEASE 10/03/2013 VALERIE TAMEZ DDS 789.09 groin (inguinal) pain 01/14/2014 FILIPE PAULSON MD 787.20 difficulty swallowing (dysphagia) 01/14/2014 FILIPE PAULSON MD 787.20 difficulty swallowing (dysphagia) 01/14/2014 FILIPE PAULSON MD 787.20 difficulty swallowing (dysphagia) 01/14/2014 FILIPE PAULSON MD 787.20 difficulty swallowing (dysphagia) 01/14/2014 FILIPE PAULSON MD 787.20 difficulty swallowing (dysphagia) 01/14/2014 FILIPE PAULSON MD 787.20 difficulty swallowing (dysphagia) 01/14/2014 FILIPE PAULSON MD 787.20 difficulty swallowing (dysphagia) 01/14/2014 FILIPE PAULSON MD 787.20 difficulty swallowing (dysphagia) 01/14/2014 FILIPE PAULSON MD 787.20 difficulty swallowing (dysphagia) 01/14/2014 FILIPE PAULSON MD 787.20 difficulty swallowing (dysphagia) 01/14/2014 FILIPE PAULSON MD 787.20 difficulty swallowing (dysphagia) 01/14/2014 FILIPE PAULSON MD 787.20 difficulty swallowing (dysphagia) 01/14/2014 LUCAS JULIO MD 787.20 difficulty swallowing (dysphagia) 01/14/2014 FILIPE PAULSON MD 787.20 difficulty swallowing (dysphagia) 01/14/2014 FILIPE PAULSON MD 787.20 difficulty swallowing (dysphagia) 01/14/2014 VALERIE TAMEZ DDS 787.20 difficulty swallowing (dysphagia) 03/19/2014 FILIPE PAULSON MD 429.2 ARTERIOSCLEROTIC CARDIOVASCULAR DISEASE (ASCVD) 03/19/2014 FILIPE PAULSON MD 616.10 VAGINITIS ATROPHIC 03/19/2014 FILIPE PAULSON MD 429.2 ARTERIOSCLEROTIC CARDIOVASCULAR DISEASE (ASCVD) 03/19/2014 FILIPE PAULSON MD 616.10 VAGINITIS ATROPHIC 03/19/2014 FILIPE PAULSON MD 429.2 ARTERIOSCLEROTIC CARDIOVASCULAR DISEASE (ASCVD) 03/19/2014 FILIPE PAULSON MD 616.10 VAGINITIS ATROPHIC 03/19/2014 FILIPE PAULSON MD 429.2 ARTERIOSCLEROTIC CARDIOVASCULAR DISEASE (ASCVD) 03/19/2014 FILIPE PAULSON MD 616.10 VAGINITIS ATROPHIC 03/19/2014 FILIPE PAULSON MD 429.2 ARTERIOSCLEROTIC CARDIOVASCULAR DISEASE (ASCVD) 03/19/2014 FILIPE PAULSON MD 616.10 VAGINITIS ATROPHIC 03/19/2014 FILIPE PAULSON MD 429.2 ARTERIOSCLEROTIC CARDIOVASCULAR DISEASE (ASCVD) 03/19/2014 FILIPE PAULSON MD 616.10 VAGINITIS ATROPHIC 03/19/2014 FILIPE PAULSON MD 429.2 ARTERIOSCLEROTIC CARDIOVASCULAR DISEASE (ASCVD) 03/19/2014 FILIPE PAULSON MD 616.10 VAGINITIS ATROPHIC 03/19/2014 FILIPE PAULSON MD 429.2 ARTERIOSCLEROTIC CARDIOVASCULAR DISEASE (ASCVD) 03/19/2014 FILIPE PAULSON MD 616.10 VAGINITIS ATROPHIC 03/19/2014 FILIPE PAULSON MD 429.2 ARTERIOSCLEROTIC CARDIOVASCULAR DISEASE (ASCVD) 03/19/2014 FILIPE PAULSON MD 616.10 VAGINITIS ATROPHIC 03/19/2014 FILIPE PAULSON MD 429.2 ARTERIOSCLEROTIC CARDIOVASCULAR DISEASE (ASCVD) 03/19/2014 FILIPE PAULSON MD 616.10 VAGINITIS ATROPHIC 03/19/2014 LUCAS JULIO MD 429.2 ARTERIOSCLEROTIC CARDIOVASCULAR DISEASE (ASCVD) 03/19/2014 LUCAS JULIO MD 616.10 VAGINITIS ATROPHIC 03/19/2014 FILIPE PAULSON MD 429.2 ARTERIOSCLEROTIC CARDIOVASCULAR DISEASE (ASCVD) 03/19/2014 FILIPE PAULSON MD 616.10 VAGINITIS ATROPHIC 03/19/2014 FILIPE PAULSON MD 429.2 ARTERIOSCLEROTIC CARDIOVASCULAR DISEASE (ASCVD) 03/19/2014 FILIPE PAULSON MD 616.10 VAGINITIS ATROPHIC 03/19/2014 VALERIE TAMEZ DDS 429.2 ARTERIOSCLEROTIC CARDIOVASCULAR DISEASE (ASCVD) 03/19/2014 VALERIE TAMEZ DDS 616.10 VAGINITIS ATROPHIC 04/15/2014 FILIPE PAULSON MD 719.45 deep pain in the left hip 04/15/2014 FILIPE PAULSON MD 719.45 deep pain in the left hip 04/15/2014 FILIPE PAULSON MD 719.45 deep pain in the left hip 04/15/2014 FILIPE PAULSON MD 719.45 deep pain in the left hip 04/15/2014 FILIPE PAULSON MD 719.45 deep pain in the left hip 04/15/2014 FILIPE PAULSON MD 719.45 deep pain in the left hip 04/15/2014 FILIPE PAULSON MD 719.45 deep pain in the left hip 04/15/2014 FILIPE PAULSON MD 719.45 deep pain in the left hip 04/15/2014 FILIPE PAULSON MD 719.45 deep pain in the left hip 04/15/2014 LUCAS JULIO MD 719.45 deep pain in the left hip 04/15/2014 FILIPE PAULSON MD 719.45 deep pain in the left hip 04/15/2014 FILIPE PAULSON MD 719.45 deep pain in the left hip 04/15/2014 VALERIE TAMEZ DDS 719.45 deep pain in the left hip 06/02/2014 FILIPE PAULSON MD 401.1 BENIGN ESSENTIAL HYPERTENSION 06/02/2014 FILIPE PAULSON MD 401.1 BENIGN ESSENTIAL HYPERTENSION 06/02/2014 FILIPE PAULSON MD 401.1 BENIGN ESSENTIAL HYPERTENSION 06/02/2014 FILIPE PAULSON MD 401.1 BENIGN ESSENTIAL HYPERTENSION 06/02/2014 FILIPE PAULSON MD 401.1 BENIGN ESSENTIAL HYPERTENSION 06/02/2014 FILIPE PAULSON MD 401.1 BENIGN ESSENTIAL HYPERTENSION 06/02/2014 FILIPE PAULSON MD 401.1 BENIGN ESSENTIAL HYPERTENSION 06/02/2014 LUCAS JULIO MD 401.1 BENIGN ESSENTIAL HYPERTENSION 06/02/2014 FILIPE PAULSON MD 401.1 BENIGN ESSENTIAL HYPERTENSION 06/02/2014 FILIPE PAULSON MD 401.1 BENIGN ESSENTIAL HYPERTENSION 06/02/2014 DASHAWN MAIS, VALERIE Zhao 401.1 BENIGN ESSENTIAL HYPERTENSION 09/10/2014 KHURRAM HERNANDEZ, FILIPE Brown 599.0 URINARY TRACT INFECTION 09/10/2014 KHURRAM HERNANDEZ, FILIPE Brown 599.0 URINARY TRACT INFECTION 09/10/2014 KHURRAM HERNANDEZ, FILIPE Brown 599.0 URINARY TRACT INFECTION 09/10/2014 SINGER HERNANDEZ, LUCAS Brown 599.0 URINARY TRACT INFECTION 09/10/2014 KHURRAM HERNANDEZ, FILIPE Brown 599.0 URINARY TRACT INFECTION 09/10/2014 KHURRAM HERNANDEZ, FILIPE Brown 599.0 URINARY TRACT INFECTION 09/10/2014 TAMEZ PAUS, VALERIE Zhao 599.0 URINARY TRACT INFECTION 10/07/2014 KHURRAM HERNANDEZ, FILIPE Brown 564.00 CONSTIPATION 10/07/2014 KHURRAM HERNANDEZ, FILIPE Brown 564.00 CONSTIPATION 10/07/2014 LUCAS JULIO MD D 564.00 CONSTIPATION 10/07/2014 FILIPE PAULSON MD D 564.00 CONSTIPATION 10/07/2014 KHURRAM HERNANDEZ, FILIPE D 564.00 CONSTIPATION 10/07/2014 TAMEZJANINE VIDAL, VALERIE Zhao 564.00 CONSTIPATION 10/17/2014 FILIPE PAULSON MD 466.0 BRONCHITIS, ACUTE 10/17/2014 LUCAS JULIO MD 466.0 BRONCHITIS, ACUTE 10/17/2014 FILIPE PAULSON MD 466.0 BRONCHITIS, ACUTE 10/17/2014 FILIPE PAULSON MD 466.0 BRONCHITIS, ACUTE 10/17/2014 DASHAWN MAIS, VALERIE Zhao 466.0 BRONCHITIS, ACUTE 10/29/2014 LUCAS JULIO MD 461.9 SINUSITIS ACUTE 10/29/2014 LUCAS JULIO MD D 786.2 COUGH 10/29/2014 FILIPE PAULSON MD 461.9 SINUSITIS ACUTE 10/29/2014 FILIPE PAULSON MD 786.2 COUGH 10/29/2014 FILIPE PAULSON MD 461.9 SINUSITIS ACUTE 10/29/2014 FILIPE PAULSON MD 786.2 COUGH 10/29/2014 TAMEZ DDS, VALERIE Zhao 461.9 SINUSITIS ACUTE 10/29/2014 TAMEZ DDS, VALERIE Zhao 786.2 COUGH 11/12/2014 FILIPE PAULSON MD 386.11 BENIGN PAROXYSMAL POSITIONAL VERTIGO 11/12/2014 FILIPE PAULSON MD 386.11 BENIGN PAROXYSMAL POSITIONAL VERTIGO 11/12/2014 VALERIE TAMEZ DDS 386.11 BENIGN PAROXYSMAL POSITIONAL VERTIGO 12/16/2014 FILIPE PAULSON MD 784.42 DYSPHONIA 12/16/2014 VALERIE TAMEZ DDS 784.42 DYSPHONIA 12/30/2014 FILIPE PAULSON MD V65.42 COUNSELING - SMOKING CESSATION 12/30/2014 VALERIE TAMEZ DDS V65.42 COUNSELING - SMOKING CESSATION 02/18/2015 VALERIE TAMEZ DDS 782.7 SPONTANEOUS ECCHYMOSES 09/05/2016 WORKING G60.9 Hereditary and idiopathic neuropathy, unspecified 09/05/2016 WORKING G89.4 Chronic pain syndrome 09/05/2016 WORKING M79.7 Fibromyalgia 09/05/2016 WORKING R13.10 Dysphagia, unspecified 09/05/2016 WORKING R20.0 Anesthesia of skin 09/05/2016 WORKING R20.2 Paresthesia of skin 09/05/2016 WORKING R53.1 Weakness 09/05/2016 WORKING R53.82 Chronic fatigue, unspecified Procedures Code Description Performed By Performed On [facility] CRISTIANE GUZMAN 10/10/2013 UNKNOWN S ANDRADE SEGAL 12/20/2013 CARDIOLOG CARDIOVASCULAR NEW BUSINESS CLERK, [facility] 02/27/2014 UNKNOWN ANDRADE MAURO 04/18/2014 ANESTHESI GABBY GARCIA 05/21/2014 66005 ROUTINE VENIPUNCTURE 06/02/2014 39942 CMP 06/02/2014 45530 LIPID PANEL 06/02/2014 [id number] GFR CALC (RESULT ONLY) 06/02/2014 71671 CBC 06/03/2014 [facility] CRISTIANE BETTS 06/03/2014 61962 A1C (IN-HOUSE) 06/16/2014 [facility] KRYSTEN BLANCHARD 06/20/2014 47583 CMP 09/10/2014 [id number] GFR CALC (RESULT ONLY) 09/10/2014 99244 CBC 02/18/2015 Results Test Result Range BACT VAGINOSIS ITIS PANEL - 06/12/14 00:00 BVCAND NOT DETECTED NOT DETECTED BVGARD NOT DETECTED NOT DETECTED BVTRIC NOT DETECTED NOT DETECTED Encounters ACCT No. Visit Date/Time Discharge Status Pt. Type Provider Facility Loc./Unit Complaint [id number] 02/19/2015 14:32:00 02/19/2015 23:59:59 CLS Outpatient VALERIE TAMEZ DDS [id number] 01/13/2015 13:28:00 01/13/2015 23:59:59 CLS Outpatient FILIPE PAULSON MD [id number] 11/12/2014 14:14:00 11/12/2014 23:59:59 CLS Outpatient FILIPE PAULSON MD [id number] 10/29/2014 11:31:00 10/29/2014 23:59:59 CLS Outpatient LUCAS JULIO MD [id number] 10/17/2014 11:32:00 10/17/2014 23:59:59 CLS Outpatient FILIPE PAULSON MD [id number] 10/07/2014 14:50:00 10/07/2014 23:59:59 CLS Outpatient FILIPE PAULSON MD [id number] 09/10/2014 13:45:00 09/10/2014 23:59:59 CLS Outpatient FILIPE PAULSON MD [id number] 08/25/2014 14:49:00 08/25/2014 23:59:59 CLS Outpatient FILIPE PAULSON MD [id number] 07/15/2014 13:31:00 07/15/2014 23:59:59 CLS Outpatient FILIPE PAULSON MD [id number] 06/16/2014 11:09:00 06/16/2014 23:59:59 CLS Outpatient FILIPE PAULSON MD [id number] 06/02/2014 08:02:00 06/02/2014 23:59:59 CLS Outpatient FILPIE PAULSON MD [id number] 05/16/2014 14:51:00 05/16/2014 23:59:59 CLS Outpatient FILIPE PAULSON MD [id number] 04/15/2014 15:05:00 04/15/2014 23:59:59 CLS Outpatient FILIPE PAULSON MD [id number] 03/19/2014 15:15:00 03/19/2014 23:59:59 CLS Outpatient FILIPE PAULSON MD [id number] 02/17/2014 14:51:00 02/17/2014 23:59:59 CLS Outpatient FILIPE PAULSON MD [id number] 01/14/2014 14:33:00 01/14/2014 23:59:59 CLS Outpatient FILIPE PAULSON MD [id number] 12/11/2013 15:35:00 12/11/2013 23:59:59 CLS Outpatient FILIPE PAULSON MD [id number] 10/08/2013 13:43:00 10/08/2013 23:59:59 CLS Outpatient FILIPE PAULSON MD [id number] 09/11/2013 14:01:00 09/11/2013 23:59:59 CLS Outpatient FILIPE PAULSON MD [id number] 08/28/2013 13:58:00 08/28/2013 23:59:59 CLS Outpatient FILIPE PAULSON MD [id number] 08/20/2013 14:07:00 08/20/2013 23:59:59 CLS Outpatient NANDO DANGELO DO [id number] 08/15/2013 12:49:00 08/15/2013 23:59:59 CLS Outpatient NANDO DANGELO DO [id number] 08/12/2013 09:58:00 08/12/2013 23:59:59 CLS Outpatient NANDO DANGELO DO [id number] 06/26/2013 15:33:00 06/26/2013 23:59:59 CLS Outpatient YONY AUGUSTIN DDS [id number] 09/28/2013 00:00:00 Document Registration [id number] 01/03/2017 02:16:07 ACT Document Registration [id number] 08/24/2017 14:46:32 Document Registration [id number] 02/15/2017 15:29:17 Document Registration [id number] 09/05/2016 14:26:06 Document Registration
[2018-01-31] MEDS ORDERED: LACTATED RINGERS 1,000 ML IV PRN ×2 (08:21→08:57)
[2018-01-31 08:25] VITALS: BP 110/100
[2018-01-31] MEDS ORDERED: ceFAZolin INJECTION 1,000 MG in NS (IVPB) 100 ML IV ONE (08:30)
--- NOTE | 2018-01-31 09:34 | Progress Note-Pre Operative ---
Pre-Operative Progress Note H&P Reviewed The H&P was reviewed, patient examined and no changes noted. Date Seen by Provider: Jan 31, 2018 Time Seen by Provider: :34 Date H&P Reviewed: Jan 31, 2018 Time H&P Reviewed: 09:34 Pre-Operative Diagnosis: right palmar fibramotosis DACIA CERVANTES MD Jan 31, 2018 09:34
--- NOTE | 2018-01-31 09:35 | Progress Note-Post Operative ---
Post-Operative Progess Note Surgeon (s)/Associate Professor Of Forestry (s) Surgeon DACIA CERVANTES MD Associate Professor Of Forestry: Lisandro Marc Pre-Operative Diagnosis right palmar fibramotosis Post-Operative Diagnosis right palmar fibramotosis Procedure & Operative Findings Date of Procedure 01/31/18 Procedure Performed/Findings right hand mass excision Anesthesia Type GETA Estimated Blood Loss Estimated blood loss (mL): minimal Specimens/Packing Specimens Removed fibromatous mass Packing: none DACIA CERVANTES MD Jan 31, 2018 09:35
[2018-01-31] MEDS ORDERED: MIDAZOLAM 2 MG/2 ML (VERSED) VIAL ONE (09:40)
[2018-01-31] MEDS ORDERED: BUPIVACAINE 0.5% 30 ML (SENSORCAINE) VIAL ONE (09:40)
[2018-01-31] MEDS ORDERED: fentaNYL INJECTION 100 MCG/2 ML AMP ONE (09:40)
[2018-01-31] MEDS ORDERED: LIDOCAINE PF 2% 5 ML (XYLOCAINE) VIAL ONE ×2 (09:41→10:37)
[2018-01-31] MEDS ORDERED: proPOfol 200 MG/20 ML (DIPRIVAN) VIAL IV ONE ×2 (09:41→10:37)
[2018-01-31] MEDS ORDERED: ONDANSETRON 4 MG/2 ML (SDV) Z0FRAN ONE ×2 (09:45→10:37)
[2018-01-31] MEDS ORDERED: DEXAMETHASONE 10 MG/ML (DECADRON) 1 ML VIAL ONE (09:50)
[2018-01-31] MEDS ORDERED: SEVOFLURANE (ULTANE) 15 ML INHAL SOLN ONE (09:50)
[2018-01-31] MEDS ORDERED: oxyCODONE/APAP 5/325MG (PERCOCET 5) TABLET PO PRN (10:15)
[2018-01-31] MEDS ORDERED: ONDANSETRON 4 MG/2 ML (SDV) Z0FRAN IVP PRN (11:00)
[2018-01-31] MEDS ORDERED: morphine INJ 10 MG/ML 1ML (SYR OR VIAL) IVP PRN (11:00)
[2018-01-31] MEDS ORDERED: MEPERIDINE (DEMEROL) INJ 50 MG/ML IVP PRN (11:00)
[2018-01-31] MEDS ORDERED: fentaNYL INJECTION 100 MCG/2 ML AMP IVP PRN (11:00)
[2018-01-31 11:40] VITALS: BP 112/60
[2018-01-31 11:41] VITALS: BP 112/60
[2018-01-31 12:10] VITALS: BP 126/67
[2018-01-31] MEDS ORDERED: OXYC-471 PO (12:41)
--- NOTE | 2018-01-31 14:23 | OPERATIVE REPORT ---
DATE OF SERVICE: 01/31/2018 PREOPERATIVE DIAGNOSIS: Right hand palmar fibromatosis. POSTOPERATIVE DIAGNOSIS: Right hand palmar fibromatosis. PROCEDURE: Right hand palmar fibromatosis excision. SURGEON: Dacia Cervantes MD PROGRAM MEDICAL DIRECTOR: DYAN Wilde, who assisted throughout the procedure and closed the incision. ANESTHESIA: General endotracheal. TOURNIQUET TIME: Not applicable. DRAINS: None. COMPLICATIONS: None. POSTOPERATIVE PLAN: Early range of motion. The patient was transferred to the recovery room in awake and stable condition. STATEMENT OF MEDICAL NECESSITY: The patient is a 57-year-old right hand dominant female with complaints of right hand pain and a mass. There was a thickening on the palmar aspect of her right hand from the distal flexion crease extending proximally. This was very localized. She had no masses on the contralateral hand. There was slight flexion of the long finger, but otherwise no apparent tendon involvement. The patient was counseled that this could recur if excised. She denied paresthesias, but due to pain with gripping activities, the patient elected to proceed with surgical excision. DESCRIPTION OF PROCEDURE: After risks and benefits of procedure were discussed and questions were answered and informed consent was signed and placed on chart. The operative site was confirmed in the preoperative holding area initialed by the surgeon. The patient was then transferred to the operating room. After adequate levels of general endotracheal anesthetic were obtained, timeout was called confirming the operative site. A Mechelle type incision was utilized. The underlying soft tissues were carefully dissected. 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 This did involve the flexor sheath. It was excised off of the flexor sheath, which allowed full extension of the long finger. The neurovascular bundle was identified and carefully protected throughout the procedure. The mass was excised in total. This was approximately 2 x 2 cm in size. The tourniquet was deflated for a total tourniquet time of 12 minutes. Pressure was used for hemostasis. Wound was copiously irrigated and closed with 4-0 nylon in simple interrupted fashion. The incision was infiltrated with plain Marcaine. A soft dressing was applied and the patient was transported to the recovery room in awake and stable condition. Job ID: [id number] DocumentID: [id number] Dictated Date: 01/31/2018 10:49:01 Loin Puller Date: 01/31/2018 14:12:59 Dictated By: DACIA CERVANTES MD
--- NOTE | 2018-01-31 14:55 | Anesthesia-General Post-Op ---
General Patient Condition Mental Status/LOC: Same as Preop Cardiovascular: Satisfactory Nausea/Vomiting: Absent Respiratory: Satisfactory Pain: Controlled Complications: Absent Post Op Complications Complications None Follow Up Care/Instructions Patient Instructions None needed. Anesthesia/Patient Condition Patient Condition Patient is doing well, no complaints, stable vital signs, no apparent adverse anesthesia problems. No complications reported per nursing. MAICO GUZMAN CRNA Jan 31, 2018 14:55
== END 2018-01-31 13:05 | disposition home or self-care (01) ==
LOC: SDC 08:13
PROVIDERS: ATTEND Orthopaedic Surgery
DX: M72.0 Palmar fascial fibromatosis [Dupuytren] (principal); Z11.2 Encounter for screening for other bacterial diseases; I10 Essential (primary) hypertension; F41.9 Anxiety disorder, unspecified; I25.10 Atherosclerotic heart disease of native coronary artery without angina pectoris; I25.2 Old myocardial infarction; Z95.1 Presence of aortocoronary bypass graft; Z98.1 Arthrodesis status; Z79.899 Other long term (current) drug therapy
CPT/HCPCS: 87081

== ENCOUNTER → 2018-02-14 | Outpatient (CLI) | payer MEDICARE, MEDICAID ==
[~2018-02-14] MED LIST changes: +OXYC-471 PO
--- NOTE | 2018-02-14 15:41 | Diagnostic Imaging Report ---
EXAM: CT CHEST SCREENING WO INDICATION: Tobacco dependence. 40 pack year smoking history. Coronary artery disease. COMPARISON: None. FINDINGS: Advanced diffuse centrilobular and paraseptal emphysema. 0.4 cm solid pulmonary nodule in the anterior right middle lobe (series 4, image 196). 0.4 cm solid pulmonary nodule in the left lung apex posteriorly (image 75). Dependent atelectasis in the lung bases. No pleural effusion or pneumothorax. No mediastinal, hilar or axillary lymphadenopathy. Normal heart size. Moderate atherosclerotic calcifications including coronary and aortic. Cardiac stents. The visualized upper abdominal contents are unremarkable. No acute osseous findings. IMPRESSION: 1. Advanced centrilobular and paraseptal emphysematous changes in the lungs. 2. Two solid pulmonary nodules measuring up to 0.4 cm. RECOMMENDATION: Continue annual screening with low dose chest CT in 12 months. Please note that the low-dose technique of this chest CT is of non-diagnostic quality. This study is only intended for lung cancer screening of high risk patients. Dictated by: Dictated on workstation # [id number]
== END ==
LOC: RAD 14:07
PROVIDERS: ATTEND Family Medicine
DX: J43.9 Emphysema, unspecified (principal); R91.8 Other nonspecific abnormal finding of lung field; I25.10 Atherosclerotic heart disease of native coronary artery without angina pectoris; F17.210 Nicotine dependence, cigarettes, uncomplicated

== ENCOUNTER → 2018-03-23 | Outpatient (CLI) | payer MEDICARE, MEDICAID | LOC: CARD 13:42 | PROVIDERS: ATTEND Physician Assistant | DX: I25.10 Atherosclerotic heart disease of native coronary artery without angina pectoris (principal); R07.9 Chest pain, unspecified; I10 Essential (primary) hypertension; E78.2 Mixed hyperlipidemia; I08.0 Rheumatic disorders of both mitral and aortic valves; I65.29 Occlusion and stenosis of unspecified carotid artery | CPT/HCPCS: 93306 ==

== ENCOUNTER → 2018-05-18 | Outpatient (CLI) | payer MEDICARE, MEDICAID ==
--- NOTE | 2018-05-18 15:53 | Diagnostic Imaging Report ---
INDICATION: Left breast pain in the upper outer aspect. COMPARISON: 08/23/2016 and 12/11/2012. TECHNIQUE: 2D and 3D bilateral diagnostic mammography was performed with CAD. FINDINGS: Both breasts are heterogeneously dense, limiting the sensitivity of mammography. Parenchymal asymmetry and nodularity in the right breast are stable. The left breast is stable. No mass or malignant appearing microcalcifications are seen. There are benign calcifications bilaterally. The axillae are unremarkable. IMPRESSION: Stable bilateral mammograms with no mammographic features suspicious for malignancy. A left breast ultrasound is recommended to evaluate the area of pain. ACR BI-RADS Category 0: Incomplete. (Needs additional imaging evaluation). Result letter will be mailed to the patient. Note: At least 10% of breast cancer is not imaged by mammography. Dictated by: Dictated on workstation # [id number]
--- NOTE | 2018-05-18 15:53 | Diagnostic Imaging Report ---
INDICATION: Left breast pain. FINDINGS: Sonographic interrogation of the area of pain in the left wrist was performed corresponding to the upper outer aspect. No sonographic abnormality is seen. No solid or cystic mass is detected. IMPRESSION: No sonographic abnormality is seen. Clinical followup is recommended. ACR BI-RADS Category 1: Negative. Dictated by: Dictated on workstation # [id number]
== END ==
LOC: RAD 14:04
PROVIDERS: ATTEND Family Medicine
DX: N64.9 Disorder of breast, unspecified (principal); M54.16 Radiculopathy, lumbar region
CPT/HCPCS: 76642; 77066

== ENCOUNTER → 2018-09-12 | Outpatient (CLI) | payer MEDICARE, MEDICAID ==
[~2018-09-12] VITALS: Ht 160 cm; Wt 51.7 kg
[~2018-09-12] MED LIST changes: +CATHETER FLUSH 10 ML SYR IV PRN; +REGADENOSON 0.4 MG/5 ML SYR (LEXISCAN) IV ONE
[2018-09-12 13:32] VITALS: BP 160/71
[2018-09-12 13:35] VITALS: BP 151/69
--- NOTE | 2018-09-12 15:21 | STRESS TEST ---
DATE OF SERVICE: 09/12/2018 EXERCISE AND LEXISCAN MYOVIEW STRESS TEST REFERRING PHYSICIAN: Dr. Daniel Valencia. Baseline heart rate is 77, baseline blood pressure is 144/63. Baseline EKG, sinus rhythm with no ischemic changes. In summary, the patient was injected with 10.1 mCi of technetium-99 Myoview. During exercise, she started having frequent PVCs and ventricular couplets and ventricular bigeminy, was unable to exercise beyond 6 minutes on standard Adrian protocol, did not achieve beyond 73% of maximum expected heart rate. Test was terminated and converted to Lexiscan Myoview stress test, the patient received 0.4 mg of Lexiscan followed by 30.3 mCi of technetium-99 Myoview. During the test, the patient has ventricular bigeminy and ventricular couplets. At the end of the test, EKG returned to baseline. The resting and stress images were reviewed and compared in the short axis, horizontal long axis, and vertical long axis views. Review of the images showed fixed defect involving the whole inferior wall, inferolateral wall and inferoseptum with surekha-infarct ischemia. SSS is 24, SDS 3, TID value 1.13. On the gated images, the left ventricle is dilated with severe diffuse left ventricular hypokinesia, calculated ejection fraction 35%. CONCLUSION: 1. The patient was unable to exercise beyond 6 minutes on a standard Adrian protocol, achieving only 73% of maximum expected heart rate, converted to Lexiscan Myoview stress test. 2. Multiple PVCs and ventricular bigeminy and ventricular couplets during test. 3. 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 4. Dilated left ventricle with diffuse left ventricular hypokinesia, calculated ejection fraction 35%. Job ID: [id number] DocumentID: [id number] Dictated Date: 09/12/2018 14:53:49 Aoc Director Combat Operations Officer Date: 09/12/2018 15:20:34 Dictated By: ISAIAH MARK MD
== END ==
LOC: CARD 11:45
PROVIDERS: ATTEND Internal Medicine Cardiovascular Disease
DX: I25.10 Atherosclerotic heart disease of native coronary artery without angina pectoris (principal); R07.9 Chest pain, unspecified; I10 Essential (primary) hypertension
CPT/HCPCS: 78452; 93017

== ENCOUNTER 2018-09-26 07:02 | Day surgery (SDC) | payer MEDICARE, MEDICAID ==
[~2018-09-26] VITALS: Ht 160 cm; Wt 52.2 kg
[2018-09-26] VITALS (12 sets, daily range): BP systolic 112–148; BP diastolic 63–77
[~2018-09-26 07:02] MED LIST changes: -CATHETER FLUSH 10 ML SYR IV PRN; -REGADENOSON 0.4 MG/5 ML SYR (LEXISCAN) IV ONE
[2018-09-26] MEDS ORDERED: LIDOCAINE 1% INJ 20 ML 20 ML VIAL ONE (07:09)
[2018-09-26] MEDS ORDERED: HEParin (CATH LAB) 2,000 ML IV ONE (07:10)
[2018-09-26] MEDS ORDERED: NS IV 1000 ML 1,000 ML IV SCH ×2 (07:15→08:32)
--- OUTSIDE RECORDS SUMMARY | 2018-09-26 07:18 | XMS REPORT | Clinical Summary ---
Author Author [facility] Address Unknown Phone Unavailable Care Team Providers Care Hospitality Aide Name Role Phone Daniel Valencia MD PP Allergies No Known Allergies Current Medications Prescription Sig. Disp. Refills Start End Date Status Date carvedilol (COREG) 6.25 take 1 Tablet by Oral 0 0 09/26/20 Active MG tablet route every day 11 gabapentin (NEURONTIN) take 1 tablet (600MG) by 0 09/26/20 Active 600 MG tablet oral route 3 times every 11 day [place]-3 Fatty Acids (FISH take 1 Capsule by [...] Fibromyalgia Active Problems Problem Noted Date Polyneuropathy 06/21/2016 Fibromyalgia 05/12/2016 CFS (chronic fatigue syndrome) 11/04/2013 Immunizations Name Dates Previously Given Next Due 21-influenza Iiv3 Pfree 08/05/2013 DTaP 04/10/2013 Hepatitis A, Ped/adol, 2 04/10/2013 dose INFLUENZA IIV4 PF 08/18/2017, 10/05/2015 (FLULAVAL,FLUZONE,FLUARIX ,AFLURIA QUAD) Influenza IIV3 PFree 07/18/2012 Influenza IIV4 MDV 08/18/2014 (Multi-dose vial) Pneumococcal Conjugate 10/05/2015 (13-valent) Typhoid,ViCPs ([facility] 04/10/2013 registry) Social History Tobacco Use Types Packs/Day Years Used Date Current Every Day Smoker Smokeless Tobacco: Never Used Tobacco Cessation: Ready to Quit: No; Counseling Given: No Comments: Smoking History Packs/day: Unknown/Cigarettes/1 12pack Sex Assigned at Date Recorded Not on file Last Filed Vital Signs Vital Sign Reading Time Taken Blood Pressure 132/80 04/02/2018 1:48 PM CDT Pulse 74 04/02/2018 1:48 PM CDT Temperature 36.6 C (97.8 F) 04/02/2018 1:48 PM CDT Respiratory Rate 14 04/02/2018 1:48 PM CDT Oxygen Saturation - - Inhaled Oxygen - - Concentration Weight 52.4 kg (115 lb 8 oz) 04/02/2018 1:48 PM CDT Height 160 cm (5' 3") 03/30/2016 2:47 PM CDT Body Mass Index 20.46 04/02/2018 1:48 PM CDT Plan of Treatment Date Type Specialty Care Team Description 10/08/2018 Follow-Up Kody Cash MD [address] [place] [id number] [phone] Health Maintenance Due Date Last Done Comments Annual Wellness Visit 1960 Hepatitis C Screening 1962 CERVICAL CANCER SCREENING 1983 Breast Cancer 2012 Screening-Mammogram Colon Cancer Screening 2012 Zoster Recombinant 2012 Vaccine (RZV,Shingrix) (1 of 2 - SV 2 Dose Standard) Influenza Vaccine (#1) 2018 08/18/2017, 10/05/2015, 08/18/2014, Additional history exists DTaP,Tdap,and Td Vaccines 04/10/2023 04/10/2013 (2 - Tdap) Results Not on filefrom Last 3 Months
--- OUTSIDE RECORDS SUMMARY | 2018-09-26 07:18 | XMS REPORT | Clinical Summary ---
Author Author [facility] Organization [facility] Address Unknown Phone Unavailable Care Team Providers Care Wrapper Stripper Name Role Phone PCP Unavailable Allergies Not on File Current Medications Not on file Active Problems Not on file Social History Tobacco Use Types Packs/Day Years Used Date Never Assessed Sex Assigned at Date Recorded Not on file Last Filed Vital Signs Not on file Plan of Treatment Not on file Results Not on filefrom Last 3 Months
--- OUTSIDE RECORDS SUMMARY | 2018-09-26 07:18 | XMS REPORT | Clinical Summary ---
Author Author [facility] Organization [facility] Address Unknown Phone Unavailable Care Team Providers Care Inbound Call Center Agent Name Role Phone PCP Unavailable Source Comments Some departments are not documenting in the electronic medical record. If you do not see the information that you expected, contact Release of Information in the Health Information Management department at [phone] for further assistance in locating additional records.[facility] Allergies No Known Allergies Current Medications Prescription [...] Taken Blood Pressure 134/67 11/17/2016 10:00 AM CORPORATE EVENTS DIRECTOR Pulse 71 11/17/2016 10:00 AM CORPORATE EVENTS DIRECTOR Temperature - - Respiratory Rate - - Oxygen Saturation - - Inhaled Oxygen - - Concentration Weight 53 kg (116 lb 12.8 oz) 11/17/2016 10:00 AM CORPORATE EVENTS DIRECTOR Height 160 cm (5' 3") 11/17/2016 10:00 AM CORPORATE EVENTS DIRECTOR Body Mass Index 20.69 11/17/2016 10:00 AM CORPORATE EVENTS DIRECTOR Plan of Treatment Health Maintenance Due Date Last Done Comments HEPATITIS C SCREENING 1962 PHYSICAL (COMPREHENSIVE) 1969 EXAM HIV SCREENING 1977 DTAP/TDAP VACCINES (1 - 1980 Tdap) CERVICAL CANCER SCREENING 1992 BREAST CANCER SCREENING 2002 COLORECTAL CANCER 2012 SCREENING SHINGLES RECOMBINANT 2012 VACCINE (1 of 2) INFLUENZA VACCINE 05/30/2018 Results Not on filefrom Last 3 Months
--- OUTSIDE RECORDS SUMMARY | 2018-09-26 07:19 | XMS REPORT | Clinical Summary ---
Author Author Admin, E Organization [facility] Address Unknown Phone Unavailable Allergies, Adverse Reactions, Alerts Allergy Name Reaction Description Start Date Severity Status Provider No Known Allergies Gloria Grace LPN NKDA Critical Active Gloria Grace LPN Conditions or Problems Problem Name Problem Code Onset Date Status Entry Date Provider Comment Standard Description Annotate ANXIETY DISORDER 300.00 Active Dominic Rice MD Anxiety state, unspecified HYPERTENSION 401.9 Active Dominic Rice MD Unspecified essential hypertension History of ABNORMAL PAP SMEAR V13.29 Active Dominic iRce MD Personal history of other genital system and obstetric disorders FH STROKE V17.1 Active Dominic Rice MD Family history of stroke (cerebrovascular) FH DIABETES V18.0 Active Dominic Rice MD Family history of diabetes mellitus FIBROMYALGIA 729.1 Active Dominic Rice MD Myalgia and myositis, unspecified DYSPLASIA OF CERVIX UNSPECIFIED 622.10 Resolved Dominic Rice MD Dysplasia of cervix, unspecified WEIGHT LOSS 783.21 Active Dominic Rice MD Loss of weight HEALTH MAINTENANCE EXAM V70.0 Active Dominic Rice MD Routine general medical examination at a health care facility TOBACCO ABUSE 305.1 Active Dominic Rice MD Tobacco use disorder HYPERLIPIDEMIA 272.4 Active Dominic Rice MD Other and unspecified hyperlipidemia VAGINITIS 616.10 Active Dominic Rice MD Vaginitis and vulvovaginitis, unspecified NECK PAIN 723.1 Active Dominic Rice MD Cervicalgia SINUSITIS 473.9 Active Dominic Rice MD Unspecified sinusitis (chronic) DYSPLASIA OF CERVIX UNSPECIFIED ICD-622.10 Inactive Dominic Rice MD Medication List Medication Instructions Start Date Stop Date Generic Name NDC Status Provider Patient Instruction AMOXICILLIN 500 MG CAPS 2 po BID x 10 days AMOXICILLIN 06054641248 No Longer Active Dominic Rice MD Active VAGIFEM 10 MCG TABS 1 vaginally twice a week ESTRADIOL 14524944739 Active Dominic Rice MD Active CARVEDILOL 6.25 MG TABS 1 po BID CARVEDILOL 13682267138 Active Jeff Calderon RN Active LIPITOR 40 MG TABS take 1 tab at bedtime ATORVASTATIN CALCIUM 56074041515 Active Jennifer Ruvalcaba Active NAPROSYN 500 MG TAB 1 tablet by mouth twice daily NAPROXEN 16627956733 Active Jeff Calderon RN Active PLAVIX 75 MG TABS take 1 tab daily CLOPIDOGREL BISULFATE 22608330679 Active Jennifer Ruvalcaba Active TRAZODONE HCL 50 MG TAB take 1 & 1/2 tab at bedtime TRAZODONE HCL 19805594389 Active Jacqueline Martinez Active TRAMADOL HCL 50 MG TABS take 1 tablet four times a day TRAMADOL HCL 84160218967 Active Dominic Rice MD Active LISINOPRIL 10 MG TABS 1 tablet by mouth daily LISINOPRIL 44117009227 Active Jeff Calderon RN Active GABAPENTIN 400 MG CAPS take 1 cap 3 times a day GABAPENTIN 34676428207 Active Nuvia Goodson RN Active LEXAPRO 10 MG TABS take 1 tablet daily ESCITALOPRAM OXALATE 93610801424 Active Jacqueline Martinez Active ESTRADIOL 1 MG TABS take 1 tab daily ESTRADIOL 72152261802 Active Peg Agee LPN Active LORTAB 7.5-500 MG TABS take 1 every 4 to 6 hours as needed for pain (must last 30 days) HYDROCODONE-ACETAMINOPHEN 15145162374 Active Dominic Rice MD Active NITROSTAT 0.4 MG SL TAB use for heart palpations if needed NITROGLYCERIN 63804809773 Active Jacqueline Martinez Active ASPIRIN 325 MG TAB use as needed ASPIRIN 90905739965 Active Jacqueline Martinez Active SUPER B COMPLEX/VITAMIN C TABS use as directed B COMPLEX-C 30843684617 Active Jacqueline Juarezs Active BLACK COHOSH 540 MG CAPS use as directed BLACK COHOSH 95101251649 Active Jacqueline Juarezs Active GREEN TEA 315 MG CAPS use as directed GREEN TEA (CAMILLIA SINENSIS) 69364464949 Active Jacqueline Martinez Active CO Q 10 100 MG CAPS take as directed COENZYME Q10 71513417972 Active Jacqueline Martinez Active VITAMIN D3 2000 UNIT CAPS take as directed CHOLECALCIFEROL 24117702467 Active Jacqueline Martinez Active TRIAMCINOLONE ACETONIDE 0.1 % CREA apply as needed TRIAMCINOLONE ACETONIDE 38521574624 Active Jacqueline Juarezs Active OMEGA-3 FISH OIL 1000 MG CAPS use as directed OMEGA-3 FATTY ACIDS 08456828570 Active Jacqueline Juarezs Active MULTIVITAMINS TABS take as directed MULTIPLE VITAMIN 77245353303 Active Jacqueline Martinez Active ACETAMINOPHEN PM EX ST 500-25 MG TABS take as directed DIPHENHYDRAMINE-APAP (SLEEP) 70581525740 Active Jacqueline Juarezs Active ACYCLOVIR 400 MG TABS take 1 tab three times a day for cold sores ACYCLOVIR 20334976454 Active Jacqueline Juarezs Active ALPRAZOLAM 0.25 MG TAB 1 tablet by mouth twice a day as needed ALPRAZOLAM 76646305774 Active Dominic Rice MD Active AMOXICILLIN 500 MG CAPS 2 po BID x 10 days AMOXICILLIN 500 MG CAPS 130606 AMOXICILLIN Inactive Encounters Code Encounter Date Provider Facility CPT-72199 Level 3 Est. Patient 15:10:28 CDT Dominic Rice MD [facility] CPT-44913 Level 3 Est. Patient 11:51:21 CDT Dominic Rice MD [facility] CPT-17115 Level 3 New Patient 12:11:16 CDT Dominic Rice MD [facility]
--- OUTSIDE RECORDS SUMMARY | 2018-09-26 07:19 | XMS REPORT | Continuity of Care Document ---
Author Author [facility] Address Unknown Phone Unavailable Allergies There is [...] NOE NANDO K 724.5 BACKACHE UNSPECIFIED 06/26/2013 DANGELO [...] JULIO MD 724.5 BACKACHE UNSPECIFIED 06/26/2013 FILIPE PAULOSN MD 112.3 CANDIDIASIS OF THE SKIN 06/26/2013 [...] PAULSON MD 338.29 CHRONIC PAIN 08/12/2013 FILIPE APULSON MD 729.1 FIBROMYALGIA 08/12/2013 FILIPE PAULSON MD [...] MD 789.09 groin (inguinal) pain 10/03/2013 FILIPE PAULOSN MD 733.6 TIETZE'S DISEASE 10/03/2013 FILIPE PAULSON [...] Procedures Code Description Performed By Performed On [facility] CRISTIANE GUZMAN 10/10/2013 UNKNOWN S ANDRADE SEGAL 12/20/2013 CARDIOLOG CARDIOVASCULAR TEACHERS AIDE, [facility] 02/27/2014 UNKNOWN ANDRADE MAURO 04/18/2014 ANESTHESI GABBY GARCIA 05/21/2014 63193 ROUTINE VENIPUNCTURE 06/02/2014 91435 CMP 06/02/2014 55924 LIPID PANEL 06/02/2014 [id number] GFR CALC (RESULT ONLY) 06/02/2014 47601 CBC 06/03/2014 [facility] CRISTIANE BETTS 06/03/2014 19125 A1C (IN-HOUSE) 06/16/2014 [facility] KRYSTEN BLANCHARD 06/20/2014 37764 CMP 09/10/2014 [id number] GFR CALC (RESULT ONLY) 09/10/2014 75997 CBC 02/18/2015 Results Test Result Range BACT VAGINOSIS ITIS PANEL - 06/12/14 00:00 BVCAND NOT DETECTED NOT DETECTED BVGARD NOT DETECTED NOT DETECTED BVTRIC NOT DETECTED NOT DETECTED Encounters ACCT No. Visit Date/Time Discharge Status Pt. Type Provider Facility Loc./Unit Complaint [id number] 02/19/2015 14:32:00 02/19/2015 23:59:59 CLS Outpatient VALERIE TAMEZ DDS [id number] 01/13/2015 13:28:00 01/13/2015 23:59:59 CLS Outpatient FILIPE PAULSON MD [id number] 11/12/2014 14:14:00 11/12/2014 23:59:59 CLS Outpatient FILIPE PAULSON MD [id number] 10/29/2014 11:31:00 10/29/2014 23:59:59 CLS Outpatient LUCAS JULIO MD [id number] 10/17/2014 11:32:00 10/17/2014 23:59:59 CLS Outpatient FILIPE PAULSON MD [id number] 10/07/2014 14:50:00 10/07/2014 23:59:59 CLS Outpatient FILIPE PAULSON MD [id number] 09/10/2014 13:45:00 09/10/2014 23:59:59 CLS Outpatient FILIPE PAULSON MD [id number] 08/25/2014 14:49:00 08/25/2014 23:59:59 CLS Outpatient FILIPE PAULSON MD [id number] 07/15/2014 13:31:00 07/15/2014 23:59:59 CLS Outpatient FILIPE PAULSON MD [id number] 06/16/2014 11:09:00 06/16/2014 23:59:59 CLS Outpatient FILIPE PAULSON MD [id number] 06/02/2014 08:02:00 06/02/2014 23:59:59 CLS Outpatient FILIPE PAULSON MD [id number] 05/16/2014 14:51:00 05/16/2014 23:59:59 CLS Outpatient FILIPE PAULSON MD [id number] 04/15/2014 15:05:00 04/15/2014 23:59:59 CLS Outpatient FILIPE PAULSON MD [id number] 03/19/2014 15:15:00 03/19/2014 23:59:59 CLS Outpatient FILIPE PAULSON MD [id number] 02/17/2014 14:51:00 02/17/2014 23:59:59 CLS Outpatient FILIPE PAULSON MD [id number] 01/14/2014 14:33:00 01/14/2014 23:59:59 CLS Outpatient FILIPE PAULSON MD [id number] 12/11/2013 15:35:00 12/11/2013 23:59:59 CLS Outpatient FILIPE PAULSON MD [id number] 10/08/2013 13:43:00 10/08/2013 23:59:59 CLS Outpatient FILIPE PAULSON MD [id number] 09/11/2013 14:01:00 09/11/2013 23:59:59 CLS Outpatient FILIPE PAULSON MD [id number] 08/28/2013 13:58:00 08/28/2013 23:59:59 CLS Outpatient FILIPE PAULSON MD [id number] 08/20/2013 14:07:00 08/20/2013 23:59:59 CLS Outpatient NANDO DANGELO DO [id number] 08/15/2013 12:49:00 08/15/2013 23:59:59 CLS Outpatient NANDO DANGELO DO [id number] 08/12/2013 09:58:00 08/12/2013 23:59:59 CLS Outpatient NANDO DANGELO DO [id number] 06/26/2013 15:33:00 06/26/2013 23:59:59 CLS Outpatient YONY AUGUSTIN DDS [id number] 09/28/2013 00:00:00 Document Registration [id number] 01/03/2017 02:16:07 ACT Document Registration [id number] 08/24/2017 14:46:32 Document Registration [id number] 02/15/2017 15:29:17 Document Registration [id number] 09/05/2016 14:26:06 Document Registration
[2018-09-26 07:32] LABS: HEMOGLOBIN 14.1 G/DL (11.5-16.0); MEAN PLATELET VOLUME 9.3 FL (7.4-10.4); RED BLOOD COUNT 4.36 10^6/uL (4.35-5.85); WHITE BLOOD COUNT 13.9 10^3/uL (4.3-11.0)
[2018-09-26 07:39] LABS: BILIRUBIN,URINE NEGATIVE (NEGATIVE); CLARITY,URINE CLEAR; COLOR,URINE YELLOW; GLUCOSE, URINE (UA) NEGATIVE (NEGATIVE); KETONES,URINE NEGATIVE (NEGATIVE); LEUKOCYTE ESTERASE ,URINE NEGATIVE (NEGATIVE); NITRITE,URINE NEGATIVE (NEGATIVE); PH,URINE 6.5 (5-9); PROTEIN,URINE NEGATIVE (NEGATIVE); UROBILINOGEN,URINE NORMAL (NORMAL)
--- NOTE | 2018-09-26 07:42 | Cardiac Procedure Note-CS/ASA ---
Pre-Procedure Note Pre-Op Procedure Note H&P Reviewed The H&P was reviewed, patient examined and no changes noted. Date H&P Reviewed: Sep 26, 2018 Time H&P Reviewed: 07:42 Conscious Sedation Pre-Proced Time 07:42 ASA Score 3 For ASA 3 and 4: Consider anesthesia and medical clearance. Also, for patients with a history of failed moderate sedation consider anesthesia. Airway Lungs Heart ASA score ASA 1: a normal healthy patient ASA 2: a patient with a mild systemic disease (mid diabetes, controlled hypertension, obesity x ASA 3: a patient with a severe systemic disease that limits activity (angina , COPD, prior Myocardial infarction) ASA 4: a patient with an incapacitating disease that is a constant threat to life (CHF, renal failure) ASA 5: a moribund patient not expected to survive 24 hrs. (ruptured aneurysm) ASA 6: a declared brain patient whose organs are being harvested. For emergent operations, add the letter E after the classification Mallampati Classification Grade 3 Sedation Plan Analgesia, Amnesia, Plan communicated to team members, Discussed options with patient/fam, Discussed risks with patient/fam The patient is an appropriate candidate to undergo the planned procedure, sedation, and anesthesia. The patient immediately re-assessed prior to indication. ISAIAH MARK MD Sep 26, 2018 07:42
--- NOTE | 2018-09-26 07:43 | Diagnostic Imaging Report ---
CHEST 1 VIEW, AP/PA ONLY Indication: Preprocedural evaluation. Comparison: 08/07/2017 Findings: No focal airspace disease in the visualized lungs. Please note that the posterior lower lobes are poorly evaluated by portable radiography. No pleural effusion or pneumothorax. Normal cardiomediastinal silhouette. Atherosclerotic aorta. Partially imaged ACDF changes in the lower cervical spine. Impression: No acute cardiopulmonary process by portable radiography. Dictated by: Dictated on workstation # [id number]
[2018-09-26 07:47] LABS: BACTERIA,URINE NEGATIVE /HPF
[2018-09-26] MEDS ORDERED: OXYC-465 PO (07:51)
[2018-09-26] MEDS ORDERED: OXYC20TA54 PO (07:51)
[2018-09-26 07:53] LABS: ALANINE AMINOTRANSFERASE 20 U/L (0-55); ALBUMIN 4.2 GM/DL (3.2-4.5); ALKALINE PHOSPHATASE 71 U/L (40-136); BILIRUBIN,TOTAL 0.3 MG/DL (0.1-1.0); BUN/CREATININE RATIO 18; CALCIUM 9.7 MG/DL (8.5-10.1); CARBON DIOXIDE 24 MMOL/L (21-32); CHLORIDE 103 MMOL/L (98-107); CHOLESTEROL 138 MG/DL (< 200); CREATININE SERUM 0.73 MG/DL (0.60-1.30); GFR ESTIMATED > 60; GLUCOSE 115 MG/DL (70-105); HDL CHOLESTEROL 45 MG/DL (40-60); POTASSIUM 4.1 MMOL/L (3.6-5.0); SODIUM 137 MMOL/L (135-145); TOTAL PROTEIN 6.8 GM/DL (6.4-8.2); TRIGLYCERIDES 104 MG/DL (<150); VLDL CHOLESTEROL 21 MG/DL (5-40)
[2018-09-26 07:59] LABS: PROTHROMBIN TIME PATIENT 13.1 SEC (12.2-14.7)
[2018-09-26] MEDS ORDERED: MIDAZOLAM 5 MG/5 ML (VERSED) VIAL ONE (08:01)
[2018-09-26] MEDS ORDERED: fentaNYL INJECTION 100 MCG/2 ML AMP ONE (08:01)
--- NOTE | 2018-09-26 08:34 | Discharge Inst-Post CATH ---
Discharge Inst-CATH Post Cardiac Cath D/C Inst Follow Up/Plan Appointment with Dr. Menjivar's office in 4 weeks CARDIAC CATH DISCHARGE INSTRUCTIONS *Hold Metformin for 48 hours post heart cath. ACTIVITY * Go Home directly and rest. * Limit activity of the leg (or wrist if it was used) for 7 days including aerobics, swimming, jogging, bicycling, etc. * Restrict stair-climbing for 7 days if possible, if not, climb up with your non -cath leg, then bring together on the same step. * Avoid lifting, pushing, pulling or excessive movement of the affected extremity for 7 days. * Customary sexual activity may be resumed after 2 days-use caution not to use a position that strains or causes pain to the affected extremity. * No driving for 24 hours. * NO SMOKING. * Avoid straining for bowel movements for 7 days. * Gentle walking on level ground is allowed. * Returning to work will depend on the type of procedure and the results. Your doctor will discuss this with you. CALL YOUR DOCTOR FOR ANY OF THE FOLLOWING: *If bleeding from the puncture site occurs- Apply gentle pressure to site with clean cloth and call your doctor or EMS. * If a knot or lump forms under the skin, increases in size, or causes pain. * If bruising appears to be worsening or moving further down your leg instead of disappearing. * Temperature above 101 F. CARE OF YOUR GROIN INCISION; * Bruising or purple discoloration of the skin near the puncture site is common. * You may shower only, no bathtub bathing for 5 days. Be careful to avoid slipping as your leg may feel stiff. * If a closure device was used on your femoral artery, please see the attached guide regarding care of the device and your leg. * Leave the dressing on, until removed by office staff. CARE OF YOUR WRIST INCISION; * Bruising or purple discoloration of the skin near the puncture site is common. * You may shower. * DO NOT submerge wrist. * Leave dressing on, until removed by office staff.. ISAIAH MENJIVAR MD Sep 26, 2018 08:34
--- NOTE | 2018-09-26 08:38 | Cardiac Cath Report ---
Cardiac Cath Report Physician (s)/Field Identification Specialist (s) Physician ISAIAH MARK MD Pre-Procedure Diagnosis Pre-Procedure Diagnosis: Coronary artery disease Post-Procedure Note Procedure Start Date: Sep 26, 2018 Name of Procedure: Left heart catheterization Findings/Procedure Note PROCEDURE NOTE: 57 years old lady with history of coronary artery disease, had abnormal stress test with deterioration the left ventricular function. She was scheduled for cardiac catheterization possible PTCA After explaining the procedure to the patient, all pros and cons were explained , all questions were answered. The patient signed the consent and then she was placed on the cardiac catheterization laboratory. Groin was prepped SL fashion local anesthesia was used. Sheath placed in the right femoral artery. Kevin right and left catheter were used to access the coronary system. Pigtail was used to access the left ventricular cavity. Left ventriculogram was done At the end of the procedure the sheath was removed. Closure device was used FINDINGS: Hemodynamics LV 150/20 one end-diastolic pressure of 21 Aorta 156/72 mean of 106 ANATOMY: Left Main is free of obstructive disease Left Anterior Descending is calcified with mild disease nonobstructive disease tortuous artery Left Circumflex has mild disease nonobstructive disease Right Coronory Artery is mildly calcified, tortuous with mild disease nonobstructive disease LV Gram was done, it appear wall was not well-visualized due to limiting them out of contrast overall appear to be prominent left ventricle with inferior hypokinesia estimated ejection fraction 40-45 percent CONCLUSION: 1. Calcified coronary system with mild coronary artery disease nonobstructive disease 2. Prominent left ventricle with inferior wall hypokinesia estimated ejection fraction 40-45 percent, elevated left ventricular end-diastolic pressure 3. Consultation in the aortic arch, no angiogram was done DISCUSSION AND RECOMMENDATION: Continue to maximize medical therapy no intervention is needed Anesthesia Type: Conscious Sedation Estimated blood loss (mL): 15 ml Contrast Amount: 20 ml Total Radiation Dose: 126 mGy Post-Procedure Diagnosis Post-operative diagnosis: Coronary artery disease Congestive heart failure, chronic compensated left ventricular systolic dysfunction, nonischemic cardiomyopathy Hypertension Hyperlipidemia ISAIAH MARK MD Sep 26, 2018 08:38
[2018-09-26] MEDS ORDERED: PATIENT MAY USE OWN MEDS, ALL PO SCH (08:45)
== END 2018-09-26 13:05 | disposition home or self-care (01) ==
LOC: CATH 07:02 → SDC 08:52 → CATH 13:05
PROVIDERS: ATTEND Internal Medicine Cardiovascular Disease
DX: I25.10 Atherosclerotic heart disease of native coronary artery without angina pectoris (principal); R07.9 Chest pain, unspecified; I11.0 Hypertensive heart disease with heart failure; I50.22 Chronic systolic (congestive) heart failure; E78.2 Mixed hyperlipidemia; I25.2 Old myocardial infarction; I65.23 Occlusion and stenosis of bilateral carotid arteries; M79.7 Fibromyalgia; R91.8 Other nonspecific abnormal finding of lung field; Z95.5 Presence of coronary angioplasty implant and graft; Z82.49 Family history of ischemic heart disease and other diseases of the circulatory system; Z79.82 Long term (current) use of aspirin; Z79.899 Other long term (current) drug therapy; Z72.0 Tobacco use
CPT/HCPCS: 36415; 71045; 80053; 80061; 81000; 85027; 85610; 85730; 87081; 93458

== ENCOUNTER → 2018-11-29 | Outpatient (CLI) | payer MEDICARE, MEDICAID ==
[~2018-11-29] MED LIST changes: +OXYC-465 PO; +OXYC20TA54 PO
== END ==
LOC: CARD 12:54
PROVIDERS: ATTEND Physician Assistant
DX: I25.10 Atherosclerotic heart disease of native coronary artery without angina pectoris (principal); I10 Essential (primary) hypertension; E78.2 Mixed hyperlipidemia; Z72.0 Tobacco use; I08.3 Combined rheumatic disorders of mitral, aortic and tricuspid valves
CPT/HCPCS: 93306

== ENCOUNTER → 2019-01-07 | Outpatient (CLI) | payer MEDICARE, MEDICAID ==
[~2019-01-07] MED LIST changes: +RT-ALBUTEROL SULF 2.5 MG/3 ML PRE-MIX VIAL INH ONE
== END ==
LOC: RT 09:52
PROVIDERS: ATTEND Nurse Practitioner Family
DX: R06.02 Shortness of breath (principal); R91.8 Other nonspecific abnormal finding of lung field
CPT/HCPCS: 94060; 94726; 94729

== ENCOUNTER → 2019-02-28 | Outpatient (CLI) | payer MEDICARE, MEDICAID ==
[~2019-02-28] MED LIST changes: -RT-ALBUTEROL SULF 2.5 MG/3 ML PRE-MIX VIAL INH ONE
--- NOTE | 2019-02-28 19:05 | Diagnostic Imaging Report ---
EXAMINATION: Ultrasound right breast, limited. INDICATION: Right breast lump. FINDINGS: Reportedly, there is a question of a lump in the mid portion of the right breast. The diagnostic mammogram performed earlier today failed to show any sign of malignancy in this area. On this exam, there is no discrete solid or cystic mass in this region. The diagnostic mammogram did show a small area of increased density along the medial aspect of the right breast. This was felt to be most likely due to fibroglandular tissue. The ultrasound examination of this area fails to show any discrete solid or cystic mass as well. I suspect that the density seen on the mammogram was indeed secondary to fibroglandular tissue. Even so, as it was not clearly present on the prior exam, a six-month followup mammogram of the right breast would be recommended for continued evaluation. IMPRESSION: There is no evidence of malignancy. Recommendations as above. ACR BI-RADS Category 3: Probably benign findings. Result letter will be mailed to the patient. Note: At least 10% of breast cancer is not imaged by mammography. Dictated on workstation # [id number]
--- NOTE | 2019-03-01 19:14 | Diagnostic Imaging Report ---
EXAMINATION: Digital mammogram bilateral diagnostic with 3D tomosynthesis and computer-aided detection (CAD) system. INDICATION: Screening. COMPARISON: This study was compared to the prior exams of 05/18/2018, 02/15/2017, 08/23/2016, and 12/11/2012. At this time, there are no current complaints, aside from a possible lump in the 12 o'clock position of the right breast. FINDINGS: The CT chest exam performed at the [facility] in [place], [place] on 01/04/2019 noted a focal asymmetric tissue in the upper aspect of the right breast. On this exam, the fibroglandular tissue in both breasts is heterogeneously dense. This does limit the sensitivity of this exam. The fibroglandular tissue in the upper aspect of the right breast is more prominent and more nodular in appearance than on the left breast. However this finding is stable when compared to the previous exams. There is no primary or secondary sign of malignancy evident in the upper aspect of the right breast. Even so, I would recommend that ultrasound of this area be performed for further study. On the craniocaudad view, in the medial aspect of the right breast, approximately 5.5 cm from the nipple, there is a small 8 mm asymmetric density. This finding was not clearly evident on the prior exam of 08/23/2016. It may have been present on the previous study of 05/18/2018. The compression view of this area shows no definite abnormality. The tomographic views also suggest that this finding is most likely due to fibroglandular tissue. Even so, I would recommend that ultrasound of this area be performed for further study. The left breast appears stable. IMPRESSION: There is no evidence of malignancy. However, ultrasound would be recommended for further evaluation of the right breast. ACR BI-RADS Category 0: Incomplete. (Needs additional imaging evaluation). Result letter will be mailed to the patient. Note: At least 10% of breast cancer is not imaged by mammography. Dictated on workstation # [id number]
== END ==
LOC: RAD 14:13
PROVIDERS: ATTEND Family Medicine
DX: N63.10 Unspecified lump in the right breast, unspecified quadrant (principal)
CPT/HCPCS: 77066

== ENCOUNTER → 2019-10-18 | Outpatient (CLI) | payer MEDICARE, MEDICAID ==
--- NOTE | 2019-10-18 18:04 | Diagnostic Imaging Report ---
INDICATION: Six-month follow-up right breast nodularity. COMPARISON: Correlation is made with prior mammograms from 02/28/2019 and 05/18/2018. TECHNIQUE: Unilateral right 2-D and 3-D diagnostic mammography was performed. The current study was also evaluated with a Computer Aided Detection (CAD) system. 3-D tomosynthesis was also performed and reviewed. FINDINGS: Right breast remains heterogeneously dense, limiting the sensitivity of mammography. Areas of asymmetric increased density in the superior and slightly medial right breast appear stable. No new abnormality is seen. There are scattered benign calcifications. Right axilla is unremarkable. IMPRESSION: Stable right mammogram. Additional six-month follow-up is recommended to show continued stability. ACR BI-RADS Category 3: Probably benign findings. Result letter will be mailed to the patient. Note: At least 10% of breast cancer is not imaged by mammography. Dictated by: Dictated on workstation # [id number]
== END ==
LOC: RAD 14:12
PROVIDERS: ATTEND Family Medicine
DX: R92.1 Mammographic calcification found on diagnostic imaging of breast (principal); N64.9 Disorder of breast, unspecified

== ENCOUNTER 2019-12-18 08:08 | Day surgery (SDC) | payer MEDICARE, MEDICAID ==
[~2019-12-18] VITALS: Ht 160 cm; Wt 56.8 kg
[2019-12-18] VITALS (12 sets, daily range): BP systolic 96–142; BP diastolic 54–85
[~2019-12-18 08:08] MED LIST changes: -MAGN400T6 PO; +MAGN400T8 PO; -TRAM50TA2 PO; +TRM50T PO
[2019-12-18] MEDS ORDERED: NS IV 1000 ML 1,000 ML ONE (08:12)
[2019-12-18] MEDS ORDERED: HEParin (CATH LAB) 2,000 ML IV ONE (08:12)
[2019-12-18] MEDS ORDERED: LIDOCAINE 1% INJ 20 ML 20 ML VIAL ONE (08:12)
[2019-12-18] MEDS ORDERED: NS IV 1000 ML 1,000 ML IV SCH ×3 (08:14→12:04)
[2019-12-18 08:42] LABS: BILIRUBIN,URINE NEGATIVE (NEGATIVE); CLARITY,URINE CLEAR; COLOR,URINE YELLOW; GLUCOSE, URINE (UA) NEGATIVE (NEGATIVE); KETONES,URINE NEGATIVE (NEGATIVE); LEUKOCYTE ESTERASE ,URINE NEGATIVE (NEGATIVE); NITRITE,URINE NEGATIVE (NEGATIVE); PH,URINE 6.5 (5-9); PROTEIN,URINE NEGATIVE (NEGATIVE)
[2019-12-18 08:49] LABS: HEMOGLOBIN 12.6 G/DL (11.5-16.0); MEAN PLATELET VOLUME 8.8 FL (7.4-10.4); RED CELL DISTRIBUTION WIDTH 13.5 % (10.0-14.5); WHITE BLOOD COUNT 11.8 10^3/uL (4.3-11.0)
[2019-12-18 08:57] LABS: INR 0.9 (0.8-1.4); PROTHROMBIN TIME PATIENT 12.9 SEC (12.2-14.7)
[2019-12-18 08:58] LABS: BACTERIA,URINE NEGATIVE /HPF
--- NOTE | 2019-12-18 09:03 | Diagnostic Imaging Report ---
INDICATION: Chest pain Portable chest 8:36 AM Heart size and pulmonary vascularity are normal. Lungs are clear. There are no effusions or pneumothoraces. IMPRESSION: Negative chest Dictated by: Dictated on workstation # [id number]
[2019-12-18 09:05] LABS: ALANINE AMINOTRANSFERASE 38 U/L (0-55); ALBUMIN 3.9 GM/DL (3.2-4.5); ALKALINE PHOSPHATASE 88 U/L (40-136); BILIRUBIN,TOTAL 0.2 MG/DL (0.1-1.0); BUN/CREATININE RATIO 19; CALCIUM 9.4 MG/DL (8.5-10.1); CARBON DIOXIDE 21 MMOL/L (21-32); CHLORIDE 100 MMOL/L (98-107); CHOLESTEROL 113 MG/DL (< 200); GFR ESTIMATED > 60; GLUCOSE 109 MG/DL (70-105); HDL CHOLESTEROL 26 MG/DL (40-60); POTASSIUM 5.1 MMOL/L (3.6-5.0); SODIUM 133 MMOL/L (135-145); TRIGLYCERIDES 116 MG/DL (<150); VLDL CHOLESTEROL 23 MG/DL (5-40)
[2019-12-18] MEDS ORDERED: TIOT4MIS3 IH (09:11)
[2019-12-18] MEDS ORDERED: MULT-974 PO (09:11)
[2019-12-18] MEDS ORDERED: ALBU90AE2 IH (09:11)
[2019-12-18] MEDS ORDERED: SPIR25TA PO (09:11)
[2019-12-18] MEDS ORDERED: fentaNYL INJECTION 100 MCG/2 ML AMP ONE (10:53)
[2019-12-18] MEDS ORDERED: MIDAZOLAM 5 MG/5 ML (VERSED) VIAL ONE (10:53)
--- NOTE | 2019-12-18 12:05 | Discharge Inst-Post CATH ---
Discharge Inst-CATH/EP Problems Reviewed?: Yes Post Cardiac Cath/EP D/C Inst Follow Up/Plan Appointment with Dr. MARK's office in 2-4 weeks <b>CARDIAC CATH/EP PROCEDURE DISCHARGE INSTRUCTIONS</b> ACTIVITY * Go Home directly and rest. * Limit activity of the leg (or wrist if it was used) for 7 days including aerobics, swimming, jogging, bicycling, etc. * Restrict stair-climbing for 7 days if possible, if not, climb up with your non-cath leg, then bring together on the same step. * Avoid lifting, pushing, pulling or excessive movement of the affected extremity for 7 days. * Customary sexual activity may be resumed after 2 days-use caution not to use a position that strains or causes pain to the affected extremity. * No driving for 24 hours. * NO SMOKING. * Avoid straining for bowel movements for 7 days. * Gentle walking on level ground is allowed. * Returning to work will depend on the type of procedure and the results. Your doctor will discuss this with you. CALL YOUR DOCTOR FOR ANY OF THE FOLLOWING: *If bleeding from the puncture site occurs- Apply gentle pressure to site with clean cloth and call your doctor or EMS. * If a knot or lump forms under the skin, increases in size, or causes pain. * If bruising appears to be worsening or moving further down your leg instead of disappearing. * Temperature above 101 F. CARE OF YOUR GROIN INCISION; * Bruising or purple discoloration of the skin near the puncture site is common. * You may shower only, no bathtub bathing for 5 days. Be careful to avoid slipping as your leg may feel stiff. * If a closure device was used on your femoral artery, please see the attached guide regarding care of the device and your leg. * Leave dressing on FOR 24 hours. CARE OF YOUR WRIST INCISION; * Bruising or purple discoloration of the skin near the puncture site is common. * You may shower. * DO NOT submerge wrist. * Leave dressing on FOR 24 hours. ISAIAH MARK MD Dec 18, 2019 12:05
[2019-12-18] MEDS ORDERED: PATIENT MAY USE OWN MEDS, ALL PO SCH (12:15)
--- NOTE | 2019-12-18 14:52 | Cardiac Procedure Note-CS/ASA ---
Pre-Procedure Note Pre-Op Procedure Note H&P Reviewed The H&P was reviewed, patient examined and no changes noted. Date H&P Reviewed: Dec 18, 2019 Time H&P Reviewed: 10:00 Conscious Sedation Pre-Proced Time 10:00 ASA Score 3 For ASA 3 and 4: Consider anesthesia and medical clearance. Also, for patients with a history of failed moderate sedation consider anesthesia. Airway Lungs Heart ASA score ASA 1: a normal healthy patient ASA 2: a patient with a mild systemic disease (mid diabetes, controlled hypertension, obesity x ASA 3: a patient with a severe systemic disease that limits activity (angina, COPD, prior Myocardial infarction) ASA 4: a patient with an incapacitating disease that is a constant threat to life (CHF, renal failure) ASA 5: a moribund patient not expected to survive 24 hrs. (ruptured aneurysm) ASA 6: a declared brain- patient whose organs are being harvested. For emergent operations, add the letter E after the classification Mallampati Classification Grade 3 Sedation Plan Analgesia, Amnesia, Plan communicated to team members, Discussed options with patient/fam, Discussed risks with patient/fam The patient is an appropriate candidate to undergo the planned procedure, sedation, and anesthesia. The patient immediately re-assessed prior to indication. ISAIAH MARK MD Dec 18, 2019 14:51
--- NOTE | 2019-12-18 14:57 | Cardiac Cath Report ---
Cardiac Cath Report Physician (s)/Ceramic Chemist (s) Physician ISAIAH MARK MD Pre-Procedure Diagnosis Pre-Procedure Diagnosis: Coronary artery disease Post-Procedure Note Procedure Start Date: Dec 18, 2019 Name of Procedure: Right and left heart catheterization Left ventriculogram Aortic root angiogram Abdominal aortogram Findings/Procedure Note PROCEDURE NOTE: 59-year-old lady with severe cardiomyopathy and valvular heart disease, scheduled for right and left heart catheterization area After explaining the procedure to the patient, all pros and cons were explained, all questions were answered. The patient signed the consent and then she was placed on the cardiac catheterization laboratory. Groin was prepped SL fashion local anesthesia was used. Sheath placed in the right femoral artery. 7 Sami sheath was placed in the right femoral vein, balloon tip [place] catheter advanced to the sheath up to the wedge position, pressure and oxygen saturation on a couple was done as described below. Kevin right and left catheter were used to access the coronary system. Pigtail was used to access the left ventricular cavity. Left ventriculogram was done Aortic root angiogram was done and abdominal aortogram was done. At the end of the procedure the sheath was removed. Closure device FINDINGS: Hemodynamics LV 115/14, end-diastolic pressure 14 Aorta 115/53 mean of 78 Pulmonary artery 30/13 mean of 21 Pulmonary capillary wedge pressure 11 RV 30/9, end-diastolic pressure of 9 RA 7 Oxygen saturation: PA 70.5, FA 93.7, RV 69.6, LRA 69.1, MRA 72.4, HR 8017.2 Cardiac output by Negin 3.59, cardiac index by Negin 2.27. Cardiac output by thermodilution 4.10, cardiac index by thermodilution 2.59. ANATOMY: Left Main is free of obstructive disease Left Anterior Descending has mild disease nonobstructive disease Left Circumflex has mild disease nonobstructive disease Right Coronory Artery has mild disease nonobstructive disease LV Gram is prominent with diffuse left ventricular hypokinesia estimated ejection fraction 35 percent, +2-3 MR Aorta evaluation done with aortic root angiogram showing normal aortic root in size, no dissection or aneurysm, aortic valve appeared to be normal Abdominal aortogram was done in the AP position showing normal abdominal aorta and normal bifurcation, normal renal artery SMA and MOLINA. CONCLUSION: 1. Mild coronary artery disease nonobstructive disease 2. Severe cardiomyopathy nonischemic in nature 3. Moderate to severe mitral regurgitation 4. Normal thoracic and abdominal aorta 5. Normal right heart pressures DISCUSSION AND RECOMMENDATION: Continue maximizing medical therapy and monitor. Anesthesia Type: Conscious Sedation Estimated blood loss (mL): 25 ml Contrast Amount: 80 ml Total Radiation Dose: 138 mGy Post-Procedure Diagnosis Post-operative diagnosis: Severe mitral regurgitation Chronic left ventricular systolic dysfunction, nonischemic cardiomyopathy compensated Hypertension Hyperlipidemia ISAIAH MARK MD Dec 18, 2019 14:57
== END 2019-12-18 17:00 | disposition home or self-care (01) ==
LOC: CATH 08:08
PROVIDERS: ATTEND Internal Medicine Cardiovascular Disease
DX: I25.10 Atherosclerotic heart disease of native coronary artery without angina pectoris (principal); I11.0 Hypertensive heart disease with heart failure; I50.9 Heart failure, unspecified; I65.23 Occlusion and stenosis of bilateral carotid arteries; I34.0 Nonrheumatic mitral (valve) insufficiency; I42.8 Other cardiomyopathies; J43.9 Emphysema, unspecified; M79.7 Fibromyalgia; G62.9 Polyneuropathy, unspecified; E11.9 Type 2 diabetes mellitus without complications; E78.2 Mixed hyperlipidemia; F17.200 Nicotine dependence, unspecified, uncomplicated; Z79.02 Long term (current) use of antithrombotics/antiplatelets; Z79.899 Other long term (current) drug therapy; Z80.3 Family history of malignant neoplasm of breast; Z82.3 Family history of stroke
CPT/HCPCS: 36415; 71045; 75625; 80053; 80061; 81000; 82810; 85027; 85610; 85730; 87081; 93460; 93567

== ENCOUNTER → 2020-04-23 | Outpatient (CLI) | payer MEDICARE, MEDICAID ==
[~2020-04-23] MED LIST changes: +ACHYD1T PO; +ALBU90AE2 IH; -HYDR-3820 PO; +MULT-974 PO; +SPIR25TA PO; +TIOT4MIS3 IH
--- NOTE | 2020-04-23 17:29 | Diagnostic Imaging Report ---
EXAM: Ultrasound right breast INDICATION: Follow-up mammogram FINDINGS: The diagnostic mammogram performed earlier today noted heterogeneously dense fibroglandular tissue in the right breast but failed to show any sign of malignancy. On this exam, there is no discrete solid or cystic mass visualized. When compared to the previous ultrasound exam of 02/28/2019 there does not appear to have been any significant change. IMPRESSION: 1. There is no evidence for malignancy. 2. The patient should have her annual bilateral screening mammogram on schedule in March of 2021. ACR category 1. ACR BI-RADS Category 1: Negative. Result letter will be mailed to the patient. Note: At least 10% of breast cancer is not imaged by mammography. Dictated by: Dictated on workstation # [id number]
--- NOTE | 2020-04-23 21:19 | Diagnostic Imaging Report ---
INDICATION: Follow up mammogram. EXAMINATION: Bilateral digital screening mammogram with CAD. The current study was also evaluated with a Computer Aided Detection (CAD) system. COMPARISON: This study was compared to the prior exams of 10/18/2019, 02/28/2019, 05/18/2018, 02/15/2017 and 08/23/2016. FINDINGS: At the time of the previous exam of 02/28/2019 the patient did complain of lump in the midportion of the right breast. The mammogram failed to show any sign of malignancy. The subsequent ultrasound exam of the right breast, performed on 02/28/2019, was also unremarkable for malignancy. On this exam, the fibroglandular tissue in both breasts, particularly the right breast, is heterogeneously dense. When compared to the prior study, there does not appear to have been any significant change. There is no primary or secondary sign of malignancy noted. IMPRESSION: 1. There is no evidence of malignancy. 2. Ultrasound of the right breast is pending for further study. ACR BI-RADS Category 0: Incomplete. (Needs additional imaging evaluation). Result letter will be mailed to the patient. Note: At least 10% of breast cancer is not imaged by mammography. Dictated by: Dictated on workstation # [id number]
== END ==
LOC: RAD 14:09
PROVIDERS: ATTEND Family Medicine
DX: R92.8 Other abnormal and inconclusive findings on diagnostic imaging of breast (principal)
CPT/HCPCS: 76642; 77066; G0279; 77062

== ENCOUNTER → 2020-06-15 | Outpatient (CLI) | payer MEDICARE, MEDICAID ==
--- NOTE | 2020-06-15 15:17 | Diagnostic Imaging Report ---
PROCEDURE: MRI lumbar spine. TECHNIQUE: Multiplanar, multisequence MRI of the lumbar spine was performed without contrast. INDICATION: Chronic low back pain. COMPARISON: No prior studies are available for comparison. FINDINGS: Curvature of the lumbar spine is normal. There is minimal anterolisthesis of L4 on L5. The vertebral body heights are maintained. No acute compression fracture is seen. No geographic marrow lesion is seen. There is some loss of height and signal intensity to the L2-L3 and L4-L5 discs compatible with degenerative disc disease. Conus is unremarkable at the L1 level. T12-L1: Central canal is patent. Neural foramina are patent. L1-L2: No central canal or neural foraminal narrowing is identified. L2-L3: There is broad-based disc/osteophyte complex indenting the ventral thecal sac. Central canal remains patent. There are some degenerative facet changes as well. Moderate narrowing bilateral lateral recesses is noted. In addition, there is moderate bilateral neural foraminal narrowing. L3-L4: Degenerative facet changes are noted but central canal is widely patent. There is mild bilateral neural foraminal narrowing. L4-L5: Hypertrophic facet changes with ligamentous thickening and broad-based disc/osteophyte complex is noted. This does result in moderate trefoil narrowing of the central canal. There is significant bilateral lateral recess stenosis. There is also significant bilateral neural foraminal stenosis. L5-S1: The central canal and neural foramina are widely patent. Paraspinous tissues are unremarkable. IMPRESSION: Multilevel lumbar spondylosis with multilevel central canal, lateral recess and neural foraminal narrowing described level by level above. Dictated by: Dictated on workstation # [id number]
== END ==
LOC: RAD 06-09 14:49
PROVIDERS: ATTEND Family Medicine
DX: M47.26 Other spondylosis with radiculopathy, lumbar region (principal); M48.061 Spinal stenosis, lumbar region without neurogenic claudication; M51.16 Intervertebral disc disorders with radiculopathy, lumbar region
CPT/HCPCS: 72148

== ENCOUNTER → 2020-11-02 | Outpatient (CLI) | payer MEDICARE, MEDICAID ==
[~2020-11-02] MED LIST changes: +ALPR.25T PO; -ALPR0.254 PO; +ASPI-1238 PO; -ASPI-983 PO; -OXYC-465 PO; +OXYC-556 PO
== END ==
LOC: CARD 13:30
PROVIDERS: ATTEND Internal Medicine Cardiovascular Disease
DX: I25.10 Atherosclerotic heart disease of native coronary artery without angina pectoris (principal)
CPT/HCPCS: 93306

== ENCOUNTER → 2021-04-20 | Outpatient (CLI) | payer MEDICARE, MEDICAID ==
[~2021-04-20] MED LIST changes: +ESCI-2 PO; -ESCI10TA55 PO; -LISI10TA2 PO; +LISI10TA25 PO; -OXYC-471 PO; +OXYC1TAB11 PO; +UBIQ100C2 PO; -UBIQ100C3 PO
--- NOTE | 2021-04-20 16:33 | Diagnostic Imaging Report ---
EXAMINATION: CT chest without contrast. TECHNIQUE: Multiple contiguous axial images were obtained through the chest without the use of intravenous contrast. All CT scans use one or more of the following dose optimizing techniques: automated exposure control, MA and/or KvP adjustment based on patient size and exam type or iterative reconstruction. HISTORY: Abnormal chest x-ray follow-up. COMPARISON: Outside CT chest from 01/04/2019. FINDINGS: Thyroid: The thyroid is normal. Mediastinum: Heart size is normal without significant pericardial effusion. Calcifications of the aorta and coronary vessels. Thoracic aorta is normal in caliber. No suspicious lymphadenopathy. Lungs and airways: There are background emphysematous changes of the lungs without consolidation, pleural effusion, or pneumothorax. There is scarring within the lung apices. There is a 0.3 cm right middle lobe pulmonary nodule which is unchanged. No new suspicious pulmonary lesion. The airways are normal. Upper abdomen: There is a 0.2 cm nonobstructing right renal calculus. Musculoskeletal: Degenerative changes of the spine without suspicious osseous lesion or compression fracture. Surgical changes from median sternotomy and CABG. Partially visualized cervical fusion hardware. IMPRESSION: 1. Background findings of COPD without other acute abnormality in the chest. 2. Stable pulmonary nodules measuring up to 0.3 cm. No new suspicious pulmonary lesion. Dictated by: Dictated on workstation # [id number]
== END ==
LOC: RAD 14:15
PROVIDERS: ATTEND Physician Assistant
DX: J44.9 Chronic obstructive pulmonary disease, unspecified (principal); R91.8 Other nonspecific abnormal finding of lung field
CPT/HCPCS: 71250

== ENCOUNTER → 2021-05-25 | Outpatient (CLI) | payer MEDICARE, MEDICAID ==
--- NOTE | 2021-05-25 18:36 | Diagnostic Imaging Report ---
INDICATION: Routine screening. COMPARISON is made with prior mammograms of 04/23/2020 and 02/28/2019. 2-D and 3-D bilateral screening mammography was performed with CAD. Both breasts are heterogeneously dense, limiting the sensitivity of mammography. The parenchymal pattern appears stable. No dominant mass is identified. There are no malignant-appearing microcalcifications. There are benign calcifications present. Axillae are unremarkable. IMPRESSION: BI-RADS Category 2 No mammographic features suspicious for malignancy are identified. ACR BI-RADS Category 2: Benign findings. Result letter will be mailed to the patient. Note: At least 10% of breast cancer is not imaged by mammography. Dictated by: Dictated on workstation # [id number]
== END ==
LOC: RAD 15:30
PROVIDERS: ATTEND Family Medicine
DX: Z12.31 Encounter for screening mammogram for malignant neoplasm of breast (principal)
CPT/HCPCS: 77063; 77067

== ENCOUNTER → 2021-11-05 | Outpatient (CLI) | payer MEDICARE, MEDICAID ==
[~2021-11-05] MED LIST changes: +CYCL10TA25 PO; -CYCL10TA9 PO; -MAGN400T8 PO; +MGX400T PO
== END ==
LOC: CARD 14:00
PROVIDERS: ATTEND Internal Medicine Cardiovascular Disease
DX: I11.9 Hypertensive heart disease without heart failure (principal); I34.0 Nonrheumatic mitral (valve) insufficiency; I65.29 Occlusion and stenosis of unspecified carotid artery; Z95.2 Presence of prosthetic heart valve
CPT/HCPCS: 93306

== ENCOUNTER → 2022-04-22 | Outpatient (CLI) | payer MEDICARE, MEDICAID ==
--- NOTE | 2022-04-22 15:23 | Diagnostic Imaging Report ---
EXAMINATION: CT chest without contrast (lung screening). TECHNIQUE: Multiple contiguous axial images were obtained through the chest without the use of intravenous contrast according to lung cancer screening protocol. All CT scans use one or more of the following dose optimizing techniques: automated exposure control, MA and/or KvP adjustment based on patient size and exam type or iterative reconstruction. HISTORY: Greater than 30 pack year history of smoking. COMPARISON: 04/20/2021 FINDINGS: There is no edema or pneumonia. No pleural effusion. No pneumothorax. No suspicious nodules. There is stable 7 mm average diameter right lower lobe nodule. No new nodules are seen. Lungs are severely emphysematous. There is no axillary or supraclavicular lymphadenopathy. There is no mediastinal lymphadenopathy. Heart size is normal. There are severe coronary artery calcifications. No pericardial effusion. Aorta is normal in caliber. There has been an aortic valve replacement. Limited views of the upper abdomen are unremarkable. There are no suspicious osseus lesions. IMPRESSION: 1. No suspicious pulmonary nodules. LUNG-RADS CATEGORY: 2 MODIFIER: None. Dictated by: Dictated on workstation # [id number]
== END ==
LOC: RAD 14:08
PROVIDERS: ATTEND Internal Medicine Critical Care Medicine
DX: J44.9 Chronic obstructive pulmonary disease, unspecified (principal); Z87.891 Personal history of nicotine dependence
CPT/HCPCS: 71271

== ENCOUNTER → 2023-03-29 | Outpatient (CLI) | payer MEDICARE, MEDICAID ==
[~2023-03-29] MED LIST changes: -GABA300S2 PO; +GABA300S3 PO
== END ==
LOC: CARD 13:54
PROVIDERS: ATTEND Internal Medicine Cardiovascular Disease
DX: I08.0 Rheumatic disorders of both mitral and aortic valves (principal); I11.9 Hypertensive heart disease without heart failure
CPT/HCPCS: 93306

== ENCOUNTER → 2023-04-13 | Outpatient (CLI) | payer MEDICARE, MEDICAID ==
[~2023-04-13] MED LIST changes: +CATHETER FLUSH 10 ML SYR IVP PRN
== END ==
LOC: CARD 06:43
PROVIDERS: ATTEND Internal Medicine Cardiovascular Disease
DX: I10 Essential (primary) hypertension (principal); Z53.9 Procedure and treatment not carried out, unspecified reason

== ENCOUNTER → 2023-04-17 | Outpatient (CLI) | payer MEDICARE, MEDICAID ==
[~2023-04-17] MED LIST changes: +REGADENOSON 0.4 MG/5 ML SYR (LEXISCAN) IV ONE
[2023-04-17 13:27] VITALS: BP 159/87
--- NOTE | 2023-04-18 08:29 | Cardiology Stress Test Report ---
Stress Test Report Date of Procedure/Referring: Date of Procedure: Apr 17, 2023 PCP Daniel Valencia MD Admitting Physician Admitting Physician: Attending Physician: Isaiah Menjivar MD Baseline Heart Rate: 79 Baseline Blood Pressure: Blood Pressure Systolic: 159 Blood Pressure Diastolic: 87 Baseline Vitals Vital Signs Date Time Temp Pulse Resp B/P (MAP) Pulse Ox O2 Delivery O2 Flow Rate FiO2 04/17/23 13:27 99 159/87 (111) 97 Room Air Baseline EKG: Baseline EKG: NSR Summary After explaining the procedure to the patient, she signed a consent and then brought to the stress nuclear laboratory. Patient received 0.4 mg Lexiscan for stress test, ECG, heart rate and blood pressure were monitored continuously. Resting and stress dose of radio tracer were injected, imaging was acquired and reviewed in short axis, horizontal long axis and vertical long axis views. TID: 1.07 SSS: 25 SDS: 2 EF: 34 Patient was unable to exercise beyond 3 minutes and 40 seconds achieving 70% of maximal expected heart rate, test converted to Lexiscan Patient tolerated Lexiscan well Fixed defect involving the whole inferior wall and inferolateral wall Dilated left ventricle with diffuse hypokinesia more pronounced at the inferior wall, ejection fraction 34% No significant change compared to the finding of 2018. ISAIAH MENJIVAR MD Apr 18, 2023 08:29
== END ==
LOC: CARD 11:18
PROVIDERS: ATTEND Internal Medicine Cardiovascular Disease
DX: I10 Essential (primary) hypertension (principal)
CPT/HCPCS: 78452; 93017; A9502